=== PATIENT | male | born 1935 | race Caucasian/White ===

== ENCOUNTER 2016-07-18 11:07 | Inpatient (IN) | payer MEDICARE, MEDICAID ==
[~2016-07-18] VITALS: Ht 174 cm; Wt 59.0 kg
[~2016-07-18 11:07] MED LIST: ALB0.5V; ALBU17AE3 IH; ALBU8.5H2 IH; ASP81TEC PO; ATOR10TA66 PO; ATRV10T PO; BUDE10.2 IH; BUDE10.22 IH; CALC-78 PO; CIPR-225 PO; CIPR-226 PO; CIPR500T4 PO; CPR250T PO; FLUTICASONE; HYDR-3812 PO; IPRA3AMP11 INH; IPRA3AMP19 NEB; L.AC1CAP6 PO; LACT1CAP62 PO; METR500T PO; METR500T21 PO; MMT17NA NS; MOME0.132; MOME0.132 IH; MULT-963 PO; MULT1CAP27 PO; RT-ALBUINH IH; RT-COMBINH; RT-COMBINH IH; SALINE NASAL SPRAY; TIOT18CA2 IH; TRM50T PO
[2016-07-18] MEDS ORDERED: RT-ALBUTEROL/IPRATROPIUM 3 ML (DUONEB) VIAL INH ONE (11:15)
[2016-07-18] MEDS ORDERED: methylPREDNISolone 125 MG (Solu-MEDROL) VIAL IVP ONE (11:15)
[2016-07-18 11:32] LABS: BASOPHILS % (AUTO) 0 % (0-10); EOSINOPHILS % (AUTO) 0 % (0-10); LYMPHOCYTES # (AUTO) 0.6 X 10^3 (1.0-4.0); LYMPHOCYTES % (AUTO) 5 % (12-44); MEAN CORPUSCULAR HEMOGLOBIN 30 PG (25-34); MEAN CORPUSCULAR HGB CONC 32 G/DL (32-36); MEAN CORPUSCULAR VOLUME 96 FL (80-99); MEAN PLATELET VOLUME 9.6 FL (7.4-10.4); MONOCYTES # (AUTO) 0.6 X 10^3 (0.0-1.0); MONOCYTES % (AUTO) 4 % (0-12); NEUTROPHILS # (AUTO) 11.7 X 10^3 (1.8-7.8); NEUTROPHILS % (AUTO) 91 % (42-75); PLATELET COUNT 256 10^3/uL (130-400); RED BLOOD COUNT 4.43 10^6/uL (4.35-5.85); RED CELL DISTRIBUTION WIDTH 14.4 % (10.0-14.5); WHITE BLOOD COUNT 12.9 10^3/uL (4.3-11.0)
--- NOTE | 2016-07-18 11:36 | ED Cough/URI ---
General Chief Complaint: Respiratory Problems Stated Complaint: SOA Nursing Triage Note: PT TO ED 10 PER W/C FOR C/O INCREASED SOA, COUGH, CONGESTION. REPORTS PRESENTLY ON ABX ET STEROIDS FOR COMPLAINT BUT DENIES IMPROVEMENT Source: patient Exam Limitations: no limitations History of Present Illness Time seen by provider: 11:35 Initial Comments To ER with a one-week history of increased shortness of breath, productive cough and congestion. He is currently on Zithromax and prednisone but denies any improvement. Denies fevers or chills. History of COPD and wears oxygen at 2 L [id number]. Today he is requiring oxygen at 4 L to maintain a saturation of 90 percent. Timing/Duration: week, getting worse Severity/Quality: productive cough Allergies and Home Medications Allergies Coded Allergies: No Known Drug Allergies (Unverified , 01/19/09) Home Medications 50 MCG AEROSOL #0 2 SPRAY NA DAILY 2 SPRAYS IN EACH NOSTRIL ONCE DAILY PT MAY TAKE HIS OWN MEDS Prescribed by: RAMONE GAMBLE on 09/28/15 1224 Albuterol Sulfate 6.7 Gm Hfa.aer.ad #1 2 PUFF IH QID PRN PRN SHORTNESS OF BREATH Prescribed by: NAHOMI BLOCK on 10/03/15 0952 Albuterol Sulfate 8.5 Gm Hfa.aer.ad #1 1-2 PUFF IH Q4H Prescribed by: NAHOMI BLOCK on 10/03/15 0952 Albuterol Sulfate/Ipratropium 3 Ml Solution 3 ML NEB EVERY 4-6 HOURS PRN PRN SHORTNESS OF BREATH (Reported) Aspirin 81 Mg Tabec 81 MG PO DAILY (Reported) Atorvastatin Calcium 10 Mg Tablet 10 MG PO HS (Reported) Budesonide/Formoterol Fumarate 10.2 Gm Hfa.aer.ad 2 PUFF IH BID (Reported) TAKES @ 0500 AND 1700 Calcium Carbonate/Vitamin D3 1 Each Tablet 1 TAB PO DAILY (Reported) Ciprofloxacin HCl 250 Mg Tablet #0 250 MG PO DAILY Prescribed by: ZAKIA ROJAS on 10/03/15 1034 Hydrocodone/Acetaminophen 1 Each Tablet #30 1 EACH PO Q8H PRN PRN PAIN Prescribed by: NAHOMI BLOCK on 10/03/15 1005 L.acidoph & Paracasei,B.lactis 1 Each Capsule 1 CAP PO TID (Reported) Multivitamin 1 Each Tablet 1 TAB PO DAILY (Reported) Tiotropium [place] 1 Inh Aerp 1 INH IH DAILY (Reported) Constitutional: see HPINo chills, No fever EENTM: see HPI Respiratory: see HPI cough short of breath Cardiovascular: no symptoms reported Genitourinary: no symptoms reported Musculoskeletal: no symptoms reported Skin: no symptoms reported Psychiatric/Neurological: No Symptoms Reported Hematologic/Lymphatic: No Symptoms Reported Immunological/Allergic: no symptoms reported Past Zclbzzk-Medskl-Jhebwo Hx Patient Social History Alcohol Use: Denies Use Recreational Drug Use: No Smoking Status: Former Smoker Type Used: Cigarettes, Smokeless Tobacco Former Smoker/When Quit: November 17, 2004 Recent Foreign Travel: No Contact w/Someone Who Travel: No Recent Infectious Disease Expo: No Recent Hopitalizations: Yes ([place] 1997; coloscopy in [place]) Physical Abuse Screen: No Sexual Abuse: No Immunizations Up To Date Tetanus Booster (TDap): More than 5yrs Date of Pneumonia Vaccine: Jul 06, 2012 Date of Influenza Vaccine: May 06, 2015 Seasonal Allergies Seasonal Allergies: No Surgeries HX Surgeries: No Surgeries: Tonsillectomy Respiratory Hx Respiratory Disorders: Yes Respiratory Disorders: COPD, Emphysema Cardiovascular Hx Cardiac Disorders: Yes Cardiac Disorders: Heart Attack Neurological Hx Neurological Disorders: No Reproductive System Hx Reproductive Disorders: No Genitourinary Hx Genitourinary Disorders: Yes Genitourinary Disorders: Prostate Problems Gastrointestinal Hx Gastrointestinal Disorders: Yes (DIVERTICULOSIS, COLON STRICTURE) Gastrointestinal Disorders: Diverticulosis Musculoskeletal Hx Musculoskeletal Disorders: No Endocrine Hx Endocrine Disorders: No HEENT HX ENT Disorders: No Cancer Hx Cancer: Yes Cancer: Prostate Psychosocial Hx Psychiatric Problems: No Integumentary HX Skin/Integumentary Disorder: No Blood Transfusions Hx Blood Disorders: No Adverse Reaction to a Blood Tr: No Family Medical History Family Medial History: Patient reports no known family medical history. Physical Exam Vital Signs Vital Sign - Last 12Hours 07/18/16 07/18/16 11:10 11:34 Temp 99.7 Pulse 77 Resp 24 B/P 159/98 Pulse Ox 91 O2 Delivery Room Air O2 Flow Rate 4.00 Capillary Refill : Less Than 3 Seconds General Appearance: WD/WN mild distress Eyes: Bilateral Eye EOMI, Bilateral Eye Normal Inspection, Bilateral Eye PERRL HEENT: PERRL/EOMI normal ENT inspection Neck: non-tender full range of motion Respiratory: no respiratory distress no accessory muscle use decreased breath sounds wheezing Gastrointestinal: normal bowel sounds non tender soft Neurologic/Psychiatric: alert normal mood/affect oriented x 3 Skin: normal color warm/dry Progress/Results/Core Measures Results/Orders Lab Results Laboratory Tests Test 07/18/16 11:21 Range/Units Alanine Aminotransferase (ALT/SGPT) 31 0-55 U/L Albumin 4.4 3.2-4.5 G/DL Alkaline Phosphatase 59 40-136 U/L Anion Gap 10 5-14 MMOL/L Aspartate Amino Transf (AST/SGOT) 25 5-34 U/L BUN/Creatinine Ratio 16 Band Neutrophils 0 % Basophils # (Auto) 0.0 0.0-0.1 10^3/uL Basophils % (Manual) 0 % Basophils (%) (Auto) 0 0-10 % Blood Morphology Comment NORMAL Blood Urea Nitrogen 11 7-18 MG/DL Calcium Level 9.2 8.5-10.1 MG/DL Carbon Dioxide Level 34 H 21-32 MMOL/L Chloride Level 96 L 98-107 MMOL/L Creatinine 0.69 0.60-1.30 MG/DL Eosinophils # (Auto) 0.0 0.0-0.3 10^3/uL Eosinophils % (Manual) 0 % Eosinophils (%) (Auto) 0 0-10 % Estimat Glomerular Filtration Rate > 60 Glucose Level 104 70-105 MG/DL Hematocrit 42 40-54 % Hemoglobin 13.4 13.3-17.7 G/DL Lymphocytes # (Auto) 0.6 L 1.0-4.0 X 10^3 Lymphocytes % (Manual) 9 % Lymphocytes (%) (Auto) 5 L 12-44 % Mean Corpuscular Hemoglobin 30 25-34 PG Mean Corpuscular Hemoglobin Concent 32 32-36 G/DL Mean Corpuscular Volume 96 80-99 FL Mean Platelet Volume 9.6 7.4-10.4 FL Monocytes # (Auto) 0.6 0.0-1.0 X 10^3 Monocytes % (Manual) 1 % Monocytes (%) (Auto) 4 0-12 % Neutrophils # (Auto) 11.7 H 1.8-7.8 X 10^3 Neutrophils % (Manual) 90 % Neutrophils (%) (Auto) 91 H 42-75 % Platelet Count 256 130-400 10^3/uL Potassium Level 4.4 3.6-5.0 MMOL/L Red Blood Count 4.43 4.35-5.85 10^6/uL Red Cell Distribution Width 14.4 10.0-14.5 % Sodium Level 140 135-145 MMOL/L Total Bilirubin 0.6 0.1-1.0 MG/DL Total Protein 7.0 6.4-8.2 G/DL White Blood Count 12.9 H 4.3-11.0 10^3/uL My Orders Orders-MICHELET MARIN APRN Cbc With Automated Diff (07/18/16 11:14) Comprehensive Metabolic Panel (07/18/16 11:14) Chest 1 View, Ap/Pa Only (07/18/16 11:14) Saline Lock/Iv-Start (07/18/16 11:14) Methylprednisolone Sod Succ (Solu-Medrol (07/18/16 11:15) Albuterol/Ipra Inhalation Soln (Duoneb I (07/18/16 11:15) Svn Sm Volume Nebulizer Rt-Rfs (07/18/16 11:14) Manual Differential (07/18/16 11:21) Medications Given in ED Current Medications Medications Dose Ordered Sig/Bekah Route Start Time Stop Time Status Last Admin Dose Admin Albuterol/ Ipratropium 3 ml ONCE ONCE INH 07/18/16 11:15 07/18/16 11:16 DC 07/18/16 11:33 3 ML Methylprednisolone Sodium Succinate 125 mg ONCE ONCE IVP 07/18/16 11:15 07/18/16 11:16 DC 07/18/16 11:47 125 MG Vital Signs/I&O Vital Sign - Last 12Hours 07/18/16 07/18/16 11:10 11:34 Temp 99.7 Pulse 77 Resp 24 B/P 159/98 Pulse Ox 91 96 O2 Delivery Room Air Nasal Cannula O2 Flow Rate 4.00 Blood Pressure Mean: 118 Departure Communication Time/Spoke to Admitting Phy: 12:[address] Twan Garcia. We will admit the patient for IV steroids and Rocephin. He states he would like to be a full code but DO NOT INTUBATE. Impression Impression: Primary Impression: COPD exacerbation Disposition: ADMITTED INPATIENT Condition: Stable Decision to Admit Reason: Admit from ER (General) Decision to Admit/Date: Jul 18, 2016 Time/Decision to Admit Time: 12:05 Departure-Patient Inst. Referrals: NO,LOCAL PHYSICIAN (PCP/Family) Primary Care Physician MICHELET MARIN APRN Jul 18, 2016 11:36
--- NOTE | 2016-07-18 11:37 | Diagnostic Imaging Report ---
Exam: Postoperative radiograph of the chest. Indication: Respiratory infection. Comparison: 10/18/2014. Findings: Increased lucency in the perihilar regions of the lungs may relate to emphysema. There is mild interstitial thickening with no focal consolidation. No effusion or pneumothorax. The mediastinum and kayla appear unremarkable. The heart size is normal. Impression: COPD. No focal infiltrates. Dictated by: Dictated on workstation # [id number]
[2016-07-18 11:50] LABS: ALANINE AMINOTRANSFERASE 31 U/L (0-55); ALBUMIN 4.4 G/DL (3.2-4.5); ANION GAP 10 MMOL/L (5-14); ASPARTATE AMINO TRANSFERASE 25 U/L (5-34); BILIRUBIN,TOTAL 0.6 MG/DL (0.1-1.0); BLOOD UREA NITROGEN 11 MG/DL (7-18); BUN/CREATININE RATIO 16; CALCIUM 9.2 MG/DL (8.5-10.1); CARBON DIOXIDE 34 MMOL/L (21-32); CHLORIDE 96 MMOL/L (98-107); CREATININE SERUM 0.69 MG/DL (0.60-1.30); GFR ESTIMATED > 60; GLUCOSE 104 MG/DL (70-105); POTASSIUM 4.4 MMOL/L (3.6-5.0); SODIUM 140 MMOL/L (135-145)
[2016-07-18 11:57] LABS: BAND NEUTROPHILS 0 %; BASOPHILS % (MANUAL) 0 %; EOSINOPHILS % (MANUAL) 0 %; LYMPHOCYTES % (MANUAL) 9 %; NEUTROPHILS % (MANUAL) 90 %
[2016-07-18 12:40] VITALS: BP 147/72
[2016-07-18] MEDS ORDERED: HYDROCORTISONE 100 MG/2 ML (Solu-CORTEF) VIAL IV SCH (13:00)
[2016-07-18] MEDS ORDERED: methylPREDNISolone 40 MG/ML (Solu-MEDROL) VIAL IV SCH (13:00)
[2016-07-18] MEDS ORDERED: ONDANSETRON 4 MG/2 ML (SDV) Z0FRAN IV PRN (13:15)
[2016-07-18] MEDS: cefTRIAXone 1 GM/NS 50 ML IVPB IV SCH ×2 (13:21)
[2016-07-18] MEDS ORDERED: IPRA4AER INH (14:04)
[2016-07-18] MEDS ORDERED: KRIL1CAP22 PO (14:04)
[2016-07-18] MEDS ORDERED: SODI45SP6 NS (14:04)
[2016-07-18] MEDS ORDERED: RT-ALBUINH IH (14:04)
[2016-07-18] MEDS ORDERED: FLUT16SP22 NS (14:04)
[2016-07-18] MEDS ORDERED: CHOL10007 PO (14:04)
[2016-07-18] MEDS ORDERED: IPRA3AMP NEB (14:04)
[2016-07-18] MEDS ORDERED: CIPR250T3 PO (14:04)
[2016-07-18] MEDS ORDERED: [UNRECOGNIZED DRUG - CODE] OU (14:09)
[2016-07-18] MEDS ORDERED: PRD10T PO (14:09)
[2016-07-18 16:40] VITALS: BP 122/61
--- NOTE | 2016-07-18 17:06 | History & Physicial ---
History of Present Illness History of Present Illness Reason for visit/HPI 81-year-old male admitted for COPD exacerbation. [place] [facility] [place] COPD exacerbation he was given 10 mg of dexamethasone IM and started azithromycin. He was also placed on a prednisone taper. Patient patient came to the ER though for continued difficulty breathing. Patient reports his biggest concern is that his heart is beating closer to 100 and he's normally running around the 70s for pulse. While in the ER patient received 125 mg of Solu-Medrol IV and 1 g of Rocephin. Chest x-ray did not show any consolidation or pneumonia. Patient's baseline oxygen requirement is 2 L nasal cannula and he is requiring 4 L currently. Patient denies nausea vomiting or diarrhea. He does feel constipated though and thinks this is contributing to his difficulty breathing as it is pressing up and restricting his thoracic volume. Patient reports his last hospitalization was in September 2015 for similar presentation of COPD exacerbation. Dr. Herrera windows deployment technician help take care of him and he was discharged 8 days later per patient. Chart review showed that the September hospitalization was prolonged due to diverticulitis. This current illness started on [id number] was around the holidays and they had similar upper respiratory symptoms. Patient admitted for further observation and evaluation treatment. Date of Admission Jul 18, 2016 at 11:47 I consulted on this patient on 07/18/16 17:00 Attending Physician Twan Mtz MD Admitting Physician Twan Mtz MD Consult Allergies and Home Medications Allergies Coded Allergies: No Known Drug Allergies (Unverified , 01/19/09) Home Medications Albuterol Sulfate 8.5 Gm Hfa.aer.ad 1-2 PUFF IH Q4H PRN PRN SHORTNESS OF BREATH (Reported) Aspirin 81 Mg Tabec 81 MG PO DAILY (Reported) Atorvastatin Calcium 10 Mg Tablet 10 MG PO DAILY (Reported) Budesonide/Formoterol Fumarate 10.2 Gm Hfa.aer.ad 2 PUFF IH 0500,1700 (Reported ) Cholecalciferol (Vitamin D3) 1,000 Unit Capsule 1,000 UNIT PO DAILY (Reported) Ciprofloxacin HCl 250 Mg Tablet 250 MG PO DAILY (Reported) Fluticasone Propionate 16 Gm [place].susp 2 SPRAYS NS DAILY (Reported) Ipratropium/Albuterol Sulfate 3 Ml Ampul.neb 3 ML NEB QID PRN PRN SHORTNESS OF BREATH (Reported) Krill/Om-3/Dha/Epa/Phospho/Ast 1 Each Capsule 1 CAP PO DAILY (Reported) Multivitamin 1 Each Tablet 1 TAB PO DAILY (Reported) Prednisone 10 Mg Tab 9Days PO UD (Reported) TAKE 4 (10MG) TABS DAY 1 THEN, TAKE 3 (10MG) TABS DAILY X 2 DAYS THEN, TAKE 2 (10MG) TABS DAILY X 2 DAYS THEN, TAKE 1 (10MG) TABS DAILY X 2 DAYS THEN, TAKE 1/2 (10MG) TAB DAILY X 2 DAYS Sodium Chloride 45 Ml [place] 1-2 SPRAYS NS TID PRN PRN DRY NOSE (Reported) Tetrahydrozoline HCl 15 Ml Drops 1-2 DROPS OU TID PRN PRN DRY EYES (Reported) Tiotropium [place] 1 Inh Aerp 1 CAP IH 0500 (Reported) Past Xvfvfcj-Yadgbo-Zpgiwn Hx Patient Social History Alcohol Use: Denies Use Recreational Drug Use: No Smoking Status: Former Smoker Former smoker/When Quit: November 17, 2004 Type Used: Smokeless Tobacco Physical Abuse Screen: No Sexual Abuse: No Recent Foreign Travel: No Contact w/other who traveled: No Recent Hopitalizations: No Recent Infectious Disease Expo: No Immunizations Up To Date Tetanus Booster (TDap): More than 5yrs Date of Pneumonia Vaccine: Jul 06, 2012 Date of Influenza Vaccine: Jul 11, 2016 Seasonal Allergies Seasonal Allergies: No Surgeries HX Surgeries: No Surgeries: Tonsillectomy Respiratory Hx Respiratory Disorders: Yes Cardiovascular Hx Cardiovascular Disorders: Yes Cardiac Disorders: Heart Attack Neurological Hx Neurological Disorders: No Reproductive System Hx Reproductive Disorders: No Genitourinary Hx Genitourinary Disorders: Yes Genitourinary Disorders: Prostate Problems Gastrointestinal Hx Gastrointestinal Disorders: Yes (DIVERTICULOSIS, COLON STRICTURE) Gastrointestinal Disorders: Diverticulosis Musculoskeletal Hx Musculoskeletal Disorders: No Endocrine Hx Endocrine Disorders: No HEENT HX ENT Disorders: No Cancer Hx Cancer: Yes Cancer: Prostate Psychosocial Hx Psychiatric Problems: No Integumentary HX Skin/Integumentary Disorder: No Blood Transfusions Hx Blood Disorders: No Adverse Reaction to a Blood Tr: No Family Medical History Family Hx: Patient reports no known family medical history. Constitutional: No chills, No diaphoresis, No dizziness, No fever, No malaise, weakness EENTM: No blurred vision, No double vision, No ear pain, No hearing loss Respiratory: cough dyspnea on exertionNo hemoptysis, short of breath wheezing Cardiovascular: No chest pain Gastrointestinal: No abdominal pain, constipationNo diarrhea, No dysphagia, No heartburn Genitourinary: No decreased output Musculoskeletal: No back pain Skin: No change in hair/nails Psychiatric/Neurological: Denies Anxiety, Denies Depressed, Denies Emotional Problems Physical Exam Vital Signs Vital Sign - Last 12Hours 07/18/16 07/18/16 11:10 11:34 Temp 99.7 Pulse 77 Resp 24 B/P 159/98 Pulse Ox 91 O2 Delivery Room Air O2 Flow Rate 4.00 Capillary Refill : Less Than 3 Seconds General Appearance: Mild Distress (respiratory Mr.) Thin Neck: Non Tender Supple Respiratory: Chest Non Tender Decreased Breath Sounds Respiratory Distress Wheezing Cardiovascular: Regular Rate, Rhythm No Edema (pediatric TEDDY in order to 4) Gastrointestinal: Normal Bowel Sounds Non Tender Rectal: Deferred Back: Normal Inspection No CVA Tenderness Extremity: Normal Capillary Refill Normal Range of Motion Non Tender Neurologic/Psychiatric: Alert Oriented x3 Normal Mood/Affect Skin: Warm/Dry Assessment/Plan Assessment and Plan 81 yo M admitted 07/18/16 COPD exacerbation- failed outpt intervention- continue solumedrol IV, MAT protocol, rocephin 1g IV , CXR eng Constipation - pt does not want anything right now. Tachycardia- received duonebs- monitor Leukocytosis- on steroids- on rocephin - rechecking in AM HLD- hold statin colonic stricture- stable, hospitalized 09/2016 for diverticulitis- not a surgical candidate. DVT ppx- SCDs Code Status- DNI Dispo: continue to monitor status- on solumedrol , rocephin, MAT protocol Clinical Quality Measures DVT/VTE Risk/Contraindication: Risk Factor Score Per Nursin RFS Level Per Nursing on Admit: 4+=Very High TWAN MTZ MD Jul 18, 2016 17:06
[2016-07-18] MEDS ORDERED: RT-ALBUTEROL/IPRATROPIUM 3 ML (DUONEB) VIAL IH PRN (17:15)
[2016-07-18] MEDS ORDERED: TETRAHYDROZOLINE (VISINE) 0.05% 15 ML BTL OU PRN (17:15)
[2016-07-18] MEDS ORDERED: SALINE NASAL SPRAY (OCEAN) 45 ML BTL NS PRN (17:15)
[2016-07-18] MEDS ORDERED: RT-ALBUTEROL SULF 2.5 MG/3 ML PRE-MIX VIAL INH PRN (17:30)
[2016-07-18 20:13] VITALS: BP 134/62
[2016-07-18] MEDS: methylPREDNISolone 40 MG/ML (Solu-MEDROL) VIAL IV SCH (20:26)
[2016-07-18] MEDS: RT-ALBUTEROL/IPRATROPIUM 3 ML (DUONEB) VIAL INH SCH (21:16)
[2016-07-19] VITALS: BP 143/62
[2016-07-19 04:07] VITALS: BP 133/64
[2016-07-19] MEDS: methylPREDNISolone 40 MG/ML (Solu-MEDROL) VIAL IV SCH ×3 (04:08→20:48)
[2016-07-19] MEDS: RT-ALBUTEROL/IPRATROPIUM 3 ML (DUONEB) VIAL INH SCH ×4 (04:12→19:43)
[2016-07-19] MEDS ORDERED: RT-ADVAIR HFA 115/21 MCG PER PUFF IH SCH (05:00)
[2016-07-19] MEDS ORDERED: TIOTROPIUM BROMIDE (SPIRIVA) 5'S INHALER IH SCH (05:00)
[2016-07-19 08:00] VITALS: BP 119/65
--- NOTE | 2016-07-19 08:26 | Progress Note (SOAP) ---
Subjective Subjective/Events-last exam CC: 81 yo M with COPD exacerbation, tachycardia. Doing much better- Pt this AM on 3L oxygen- baseline of 2L- Pt was starting to eat breakfast. He reports 6cm in length stool last night and 10cm this AM. Denies nausea,fever, pain. Is still coughing up phlegm. Tachycardia improved/resolved. Review of Systems General: No Chills, No Night Sweats HEENT: No Head Aches, No Visual Changes Pulmonary: Dyspnea (improving) Cough Cardiovascular: No: Chest Pain, Palpitations Gastrointestinal: No: Abdominal Pain, Nausea, Vomiting Genitourinary: No Dysuria, No Frequency Musculoskeletal: No: neck pain Neurological: No: Numbness, Weakness Objective Exam Vital Signs Date Time Temp Pulse Resp B/P Pulse Ox O2 Delivery O2 Flow Rate FiO2 07/19/16 04:13 97 Nasal Cannula 4.00 07/19/16 04:07 96.3 71 18 133/64 97 Nasal Cannula 4.00 07/19/16 00:00 97.8 91 20 143/62 95 Nasal Cannula 4.00 07/18/16 21:17 97 Nasal Cannula 4.00 07/18/16 20:30 Nasal Cannula 4.00 07/18/16 20:13 98.4 96 20 134/62 97 Nasal Cannula 4.00 07/18/16 17:18 96 07/18/16 16:40 99.2 95 20 122/61 96 Nasal Cannula 4.00 07/18/16 12:40 77 20 96 Nasal Cannula 4 07/18/16 12:40 Nasal Cannula 3.00 07/18/16 12:40 98.7 94 20 147/72 95 Nasal Cannula 4.00 07/18/16 11:34 96 Nasal Cannula 4.00 07/18/16 11:10 99.7 77 24 159/98 91 Room Air I & O 07/19/16 07:00 Intake Total 1287 ml Output Total 1475 ml Balance -188 ml Capillary Refill : Less Than 3 Seconds General Appearance: No Apparent Distress HEENT: Other (EOMI) Neck: Normal Inspection Non Tender Respiratory: Chest Non Tender Decreased Breath Sounds (bases) Rhonci (coarse) Wheezing (minimal) Cardiovascular: Regular Rate, Rhythm No Edema Gastrointestinal: normal bowel sounds non tender soft Extremity: Normal Capillary Refill Neurologic/Psychiatric: Alert Oriented x3 Skin: Warm/Dry Results Lab Laboratory Tests 07/18/16 11:21: Alanine Aminotransferase (ALT/SGPT) 31, Albumin 4.4, Alkaline Phosphatase 59, Anion Gap 10, Aspartate Amino Transf (AST/SGOT) 25, BUN/Creatinine Ratio 16, Band Neutrophils 0, Basophils # (Auto) 0.0, Basophils % (Manual) 0, Basophils (% ) (Auto) 0, Blood Morphology Comment NORMAL, Blood Urea Nitrogen 11, Calcium Level 9.2, Carbon Dioxide Level 34H, Chloride Level 96L, Creatinine 0.69, Eosinophils # (Auto) 0.0, Eosinophils % (Manual) 0, Eosinophils (%) (Auto) 0, Estimat Glomerular Filtration Rate > 60, Glucose Level 104, Hematocrit 42, Hemoglobin 13.4, Lymphocytes # (Auto) 0.6L, Lymphocytes % (Manual) 9, Lymphocytes (%) (Auto) 5L, Mean Corpuscular Hemoglobin 30, Mean Corpuscular Hemoglobin Concent 32, Mean Corpuscular Volume 96, Mean Platelet Volume 9.6, Monocytes # (Auto) 0.6, Monocytes % (Manual) 1, Monocytes (%) (Auto) 4, Neutrophils # (Auto) 11.7H, Neutrophils % (Manual) 90, Neutrophils (%) (Auto) 91H, Platelet Count 256, Potassium Level 4.4, Red Blood Count 4.43, Red Cell Distribution Width 14.4, Sodium Level 140, Total Bilirubin 0.6, Total Protein 7.0, White Blood Count 12.9H Assessment/Plan Assessment/Plan Assess & Plan/Chief Complaint 81 yo M admitted 07/18/16 COPD exacerbation- failed outpt intervention- continue solumedrol IV, MAT protocol, rocephin 1g IV , CXR neg Constipation - improved BM 07/19/16 Tachycardia- received duonebs- monitor- improved regular rate Leukocytosis- on steroids- on rocephin - rechecking in AM HLD- hold statin colonic stricture- stable, hospitalized 09/2016 for diverticulitis- not a surgical candidate. -monitor gynecomastia- due for repeat mammogram in November 2016- previous workup negative. DVT ppx- SCDs Code Status- DNI Dispo: continue to monitor status- titrating solumedrol, MAT protocol Diagnosis/Problems: Clinical Quality Measures DVT/VTE Risk/Contraindication: Risk Factor Score Per Nursin RFS Level Per Nursing on Admit: 4+=Very High MENDOZA MTZ MD Jul 19, 2016 08:26
[2016-07-19] MEDS: UMECLIDINIUM BROMIDE (INCRUSE ELLIPTA) 7'S IH SCH (08:52)
[2016-07-19] MEDS: ASPIRIN E.C. 81 MG (ECOTRIN) TAB PO SCH (08:52)
[2016-07-19] MEDS: FLUTICASONE NASAL SPRAY (FLONASE) 16 GM BTL NS SCH (08:53)
[2016-07-19] MEDS: RT-ADVAIR HFA 115/21 MCG PER PUFF IH SCH ×2 (08:54→19:43)
[2016-07-19] MEDS: ENOXAPARIN 40 MG/0.4 ML (LOVENOX) SYR SQ SCH (08:55)
[2016-07-19 12:00] VITALS: BP 121/74
[2016-07-19] MEDS: cefTRIAXone 1 GM/NS 50 ML IVPB IV SCH ×2 (13:28)
[2016-07-19 16:00] VITALS: BP 126/65
[2016-07-19 19:47] VITALS: BP 133/86
[2016-07-20] VITALS: BP 126/57
[2016-07-20] MEDS: RT-ALBUTEROL/IPRATROPIUM 3 ML (DUONEB) VIAL INH SCH ×4 (02:16→19:19)
[2016-07-20 04:34] LABS: BASOPHILS % (AUTO) 0 % (0-10); EOSINOPHILS % (AUTO) 0 % (0-10); LYMPHOCYTES # (AUTO) 0.6 X 10^3 (1.0-4.0); LYMPHOCYTES % (AUTO) 3 % (12-44); MEAN CORPUSCULAR HEMOGLOBIN 30 PG (25-34); MEAN CORPUSCULAR HGB CONC 31 G/DL (32-36); MEAN CORPUSCULAR VOLUME 98 FL (80-99); MONOCYTES # (AUTO) 0.9 X 10^3 (0.0-1.0); MONOCYTES % (AUTO) 5 % (0-12); NEUTROPHILS # (AUTO) 16.2 X 10^3 (1.8-7.8); NEUTROPHILS % (AUTO) 92 % (42-75); PLATELET COUNT 278 10^3/uL (130-400); RED BLOOD COUNT 4.24 10^6/uL (4.35-5.85); RED CELL DISTRIBUTION WIDTH 14.5 % (10.0-14.5); WHITE BLOOD COUNT 17.7 10^3/uL (4.3-11.0)
[2016-07-20] MEDS: methylPREDNISolone 40 MG/ML (Solu-MEDROL) VIAL IV SCH (04:35)
[2016-07-20 04:52] LABS: ALBUMIN 3.9 G/DL (3.2-4.5); ANION GAP 10 MMOL/L (5-14); BLOOD UREA NITROGEN 24 MG/DL (7-18); BUN/CREATININE RATIO 31; CARBON DIOXIDE 37 MMOL/L (21-32); CHLORIDE 96 MMOL/L (98-107); CREATININE SERUM 0.78 MG/DL (0.60-1.30); GFR ESTIMATED > 60; GLUCOSE 166 MG/DL (70-105); MAGNESIUM 2.3 MG/DL (1.8-2.4); PHOSPHORUS 3.9 MG/DL (2.3-4.7); POTASSIUM 4.1 MMOL/L (3.6-5.0); SODIUM 143 MMOL/L (135-145)
[2016-07-20] MEDS: RT-ADVAIR HFA 115/21 MCG PER PUFF IH SCH ×2 (07:00→19:19)
[2016-07-20] MEDS: UMECLIDINIUM BROMIDE (INCRUSE ELLIPTA) 7'S IH SCH (07:00)
[2016-07-20 08:00] VITALS: BP 124/62
--- NOTE | 2016-07-20 08:05 | Progress Note (SOAP) ---
Subjective Subjective/Events-last exam 81 yo M with COPD exacerbation Reports feeling better daily- Denies any worsening of respiratory status- Gets up to go to the bathroom. Denies fever. Using his IS to promote coughing and keeps his lungs open. Tachycardia is still improved and returns with breathing treatments. Review of Systems General: No Chills, No Night Sweats HEENT: No Head Aches Pulmonary: Dyspnea Cough Cardiovascular: No: Chest Pain, Palpitations Gastrointestinal: No: Abdominal Pain, Nausea, Vomiting Genitourinary: No Dysuria, No Frequency Musculoskeletal: No: neck pain, shoulder pain Neurological: No: Weakness Objective Exam Vital Signs Date Time Temp Pulse Resp B/P Pulse Ox O2 Delivery O2 Flow Rate FiO2 07/20/16 07:01 96 Nasal Cannula 3.00 07/20/16 02:16 96 Nasal Cannula 3.00 07/20/16 00:00 97.0 70 18 126/57 98 Nasal Cannula 3.00 07/19/16 20:30 96 Nasal Cannula 3.00 07/19/16 19:51 95 07/19/16 19:47 98.8 108 18 133/86 92 Nasal Cannula 3.00 07/19/16 19:43 95 Nasal Cannula 3.00 07/19/16 16:00 97.7 83 18 126/65 98 Nasal Cannula 3.00 07/19/16 14:15 98 Nasal Cannula 3.00 07/19/16 12:00 97.8 78 18 121/74 98 Nasal Cannula 4.00 07/19/16 09:00 Nasal Cannula 3.00 07/19/16 08:55 94 Nasal Cannula 3.00 I & O 07/20/16 07:00 Intake Total 2090 ml Output Total 575 ml Balance 1515 ml Capillary Refill : Less Than 3 Seconds General Appearance: No Apparent Distress WD/WN HEENT: PERRL/EOMI Neck: Full Range of Motion Supple Respiratory: Chest Non Tender Other (tight breath sounds throughout, wheeze occassional- no rhonchi or stridor) Cardiovascular: Regular Rate, Rhythm No Edema Gastrointestinal: normal bowel sounds non tender soft Extremity: Normal Inspection Non Tender Neurologic/Psychiatric: Alert Oriented x3 No Motor/Sensory Deficits Normal Mood/Affect Skin: Normal Color Warm/Dry Results Lab Laboratory Tests 07/20/16 04:08: Albumin 3.9, Anion Gap 10, BUN/Creatinine Ratio 31, Basophils # (Auto) 0.0, Basophils (%) (Auto) 0, Blood Urea Nitrogen 24H, Calcium Level 9.0, Carbon Dioxide Level 37H, Chloride Level 96L, Creatinine 0.78, Eosinophils # (Auto) 0.0 , Eosinophils (%) (Auto) 0, Estimat Glomerular Filtration Rate > 60, Glucose Level 166H, Hematocrit 41, Hemoglobin 12.7L, Lymphocytes # (Auto) 0.6L, Lymphocytes (%) (Auto) 3L, Magnesium Level 2.3, Mean Corpuscular Hemoglobin 30, Mean Corpuscular Hemoglobin Concent 31L, Mean Corpuscular Volume 98, Mean Platelet Volume 10.0, Monocytes # (Auto) 0.9, Monocytes (%) (Auto) 5, Neutrophils # (Auto) 16.2H, Neutrophils (%) (Auto) 92H, Phosphorus Level 3.9, Platelet Count 278, Potassium Level 4.1, Red Blood Count 4.24L, Red Cell Distribution Width 14.5, Sodium Level 143, White Blood Count 17.7H Assessment/Plan Assessment/Plan Assess & Plan/Chief Complaint 81 yo M admitted 07/18/16 COPD exacerbation- failed outpt intervention- MAT protocol, rocephin 1g IV , CXR neg, methylprednisolone iv to prednisone PO - will give 1 time dose of dexamethasone. Constipation - improved BM 07/19/16 Tachycardia- received duonebs- monitor- improved regular rate Leukocytosis- on steroids- on rocephin - increased to 17K rechecking in AM HLD- hold statin colonic stricture- stable, hospitalized 09/2016 for diverticulitis- not a surgical candidate. -monitor gynecomastia- due for repeat mammogram in November 2016- previous workup negative. DVT ppx- SCDs Code Status- DNI Dispo: continue to monitor status- titrating solumedrol, MAT protocol- plan to d/c to home in the next 2 days- near baseline oxygen requirement. Diagnosis/Problems: Clinical Quality Measures DVT/VTE Risk/Contraindication: Risk Factor Score Per Nursin RFS Level Per Nursing on Admit: 4+=Very High MENDOZA MTZ MD Jul 20, 2016 08:05
[2016-07-20] MEDS: ASPIRIN E.C. 81 MG (ECOTRIN) TAB PO SCH (08:27)
[2016-07-20] MEDS: predniSONE 20 MG TAB PO SCH ×2 (08:27→20:42)
[2016-07-20] MEDS: FLUTICASONE NASAL SPRAY (FLONASE) 16 GM BTL NS SCH (08:27)
[2016-07-20] MEDS: ENOXAPARIN 40 MG/0.4 ML (LOVENOX) SYR SQ SCH (08:28)
--- NOTE | 2016-07-20 09:15 | Diagnostic Imaging Report ---
INDICATION: Hypoxia and COPD exacerbation. Comparison is made with prior examination from 07/18/16. FINDINGS: The heart size is normal. Mediastinum is unremarkable. There is some COPD. There is no pleural effusion or pneumothorax. Mediastinum is unremarkable. IMPRESSION: COPD, otherwise unremarkable. Dictated by: Dictated on workstation # [id number]
[2016-07-20] MEDS: cefTRIAXone 1 GM/NS 50 ML IVPB IV SCH ×2 (13:00)
[2016-07-20] MEDS ORDERED: DEXAMETHASONE 4 MG/ML SDV (DECADRON) IV NR (13:15)
[2016-07-20 16:53] VITALS: BP 140/63
[2016-07-20 20:00] VITALS: BP 165/76
[2016-07-21] VITALS: BP 123/61
[2016-07-21] MEDS: RT-ALBUTEROL/IPRATROPIUM 3 ML (DUONEB) VIAL INH SCH ×8 (01:00→21:02)
[2016-07-21 04:00] VITALS: BP 126/58
[2016-07-21 04:44] LABS: BASOPHILS % (AUTO) 0 % (0-10); EOSINOPHILS % (AUTO) 0 % (0-10); LYMPHOCYTES # (AUTO) 0.5 X 10^3 (1.0-4.0); LYMPHOCYTES % (AUTO) 3 % (12-44); MEAN CORPUSCULAR HEMOGLOBIN 30 PG (25-34); MEAN CORPUSCULAR HGB CONC 31 G/DL (32-36); MEAN CORPUSCULAR VOLUME 97 FL (80-99); MEAN PLATELET VOLUME 9.9 FL (7.4-10.4); MONOCYTES # (AUTO) 1.1 X 10^3 (0.0-1.0); MONOCYTES % (AUTO) 6 % (0-12); NEUTROPHILS # (AUTO) 16.1 X 10^3 (1.8-7.8); NEUTROPHILS % (AUTO) 91 % (42-75); PLATELET COUNT 243 10^3/uL (130-400); RED BLOOD COUNT 4.12 10^6/uL (4.35-5.85); RED CELL DISTRIBUTION WIDTH 14.5 % (10.0-14.5); WHITE BLOOD COUNT 17.8 10^3/uL (4.3-11.0)
[2016-07-21] MEDS: UMECLIDINIUM BROMIDE (INCRUSE ELLIPTA) 7'S IH SCH (07:14)
[2016-07-21] MEDS: RT-ADVAIR HFA 115/21 MCG PER PUFF IH SCH ×2 (07:14→21:02)
[2016-07-21 07:52] VITALS: BP 141/64
[2016-07-21] MEDS: ASPIRIN E.C. 81 MG (ECOTRIN) TAB PO SCH (08:06)
[2016-07-21] MEDS: FLUTICASONE NASAL SPRAY (FLONASE) 16 GM BTL NS SCH (08:06)
[2016-07-21] MEDS: ENOXAPARIN 40 MG/0.4 ML (LOVENOX) SYR SQ SCH (08:06)
[2016-07-21] MEDS: predniSONE 20 MG TAB PO SCH ×2 (08:06→20:14)
--- NOTE | 2016-07-21 08:06 | Physician Query-General Query ---
Physician Query-General Query to Physician: For clarification: Is this patient's colonic stricture due to diverticulosis or other etiology? Please clarify. Thank you. PHYSICIAN RESPONSE: Based on the clinical findings in the record, please respond to the query above on this document as an addendum. Possible, probable, or questionable diagnosis can be coded for INPATIENTS ONLY. Physician Response: Physician Response diverticulosis If you have questions please contact: Crown Wheel Assembler:Shreya Agrawal [facility] Ext:[phone] Thank you for your time and cooperation. Clinical Conduit Helper/Crown Wheel Assembler This is a permanent part of the medical record SHREYA AGRAWAL Jul 21, 2016 08:06 MENDOZA MTZ MD Jul 21, 2016 08:46
[2016-07-21] MEDS ORDERED: CATHETER FLUSH 10 ML SYR IV PRN (08:15)
--- NOTE | 2016-07-21 09:19 | Progress Note (SOAP) ---
Subjective Subjective/Events-last exam 81 yo M with copd exacerbation- nursing report from yesterday reports anxiety from the pt and anger because he wants to keep the oxygen at 3L so his sats are 98%. Pt also wants to use his albuterol inhaler QID, prn- RT is giving him nebulizer. Pt reports he feels better when he uses the albuterol, helps open him up. He is a little unsure of going home today. Review of Systems General: No Chills, No Night Sweats HEENT: No Head Aches Pulmonary: Dyspnea Cough Cardiovascular: No: Chest Pain, Palpitations Gastrointestinal: No: Abdominal Pain, Nausea, Vomiting Genitourinary: No Dysuria, No Frequency Musculoskeletal: No: neck pain, shoulder pain Neurological: : WeaknessNo: Numbness Objective Exam Vital Signs Date Time Temp Pulse Resp B/P Pulse Ox O2 Delivery O2 Flow Rate FiO2 07/21/16 09:05 92 Nasal Cannula 2.50 07/21/16 07:52 97.3 89 16 141/64 97 Nasal Cannula 2.50 07/21/16 07:22 Nasal Cannula 2.50 07/21/16 07:14 98 Nasal Cannula 2.50 07/21/16 04:00 96.7 71 18 126/58 99 Nasal Cannula 2.50 07/21/16 00:00 98.3 84 18 123/61 97 Nasal Cannula 2.50 07/20/16 20:10 Nasal Cannula 2.50 07/20/16 20:00 99.1 97 18 165/76 96 Nasal Cannula 2.50 07/20/16 19:25 Nasal Cannula 2.50 07/20/16 19:20 94 Nasal Cannula 2.50 07/20/16 16:53 96.9 103 18 140/63 97 Nasal Cannula 2.50 07/20/16 15:16 95 Nasal Cannula 2.50 07/20/16 09:21 96 Nasal Cannula 3.00 I & O 07/21/16 07:00 Intake Total 3150 ml Output Total 1750 ml Balance 1400 ml Capillary Refill : Less Than 3 Seconds General Appearance: Anxious Mild Distress HEENT: PERRL/EOMI Neck: Supple Respiratory: Chest Non Tender Decreased Breath Sounds (bases) Wheezing Other ( tight sounding- ) Cardiovascular: Regular Rate, Rhythm No Edema Gastrointestinal: normal bowel sounds non tender soft Extremity: Normal Inspection Non Tender Neurologic/Psychiatric: Alert Oriented x3 Normal Mood/Affect (a little anxious ) Skin: Warm/Dry Results Lab Laboratory Tests 07/21/16 04:30: Basophils # (Auto) 0.0, Basophils (%) (Auto) 0, Eosinophils # (Auto) 0.0, Eosinophils (%) (Auto) 0, Hematocrit 40, Hemoglobin 12.3L, Lymphocytes # (Auto) 0.5L, Lymphocytes (%) (Auto) 3L, Mean Corpuscular Hemoglobin 30, Mean Corpuscular Hemoglobin Concent 31L, Mean Corpuscular Volume 97, Mean Platelet Volume 9.9, Monocytes # (Auto) 1.1H, Monocytes (%) (Auto) 6, Neutrophils # (Auto ) 16.1H, Neutrophils (%) (Auto) 91H, Platelet Count 243, Red Blood Count 4.12L, Red Cell Distribution Width 14.5, White Blood Count 17.8H Assessment/Plan Assessment/Plan Assess & Plan/Chief Complaint 81 yo M admitted 07/18/16 COPD exacerbation- failed outpt intervention- MAT protocol, rocephin 1g IV switching to po cefdinir , CXR neg, methylprednisolone iv to prednisone PO - 1 time dose of dexamethasone 10mg 07/20/16 Constipation - improved BM 07/19/16 Tachycardia- monitor- improved regular rate Leukocytosis- on steroids- on rocephin - increased to 17K - will recheck in AM HLD- hold statin colonic stricture due to diverticulosis- stable, hospitalized 09/2016 for diverticulitis- not a surgical candidate. -monitor gynecomastia- due for repeat mammogram in November 2016- previous workup negative. DVT ppx- SCDs, lovenox Code Status- DNI Dispo: continue to monitor status- pt's leukocytes have not decreased- will check WBC in AM, also pt sounds tighter today with wheezing- he is working a little harder to breath- anxiety is contributing to this. plan to d/c to home in tomorrow- near baseline oxygen requirement. -will send home on prednisone taper, cefdinir x4 more days. -CM, PT, OT to eval pt today for Home Health Diagnosis/Problems: Clinical Quality Measures DVT/VTE Risk/Contraindication: Risk Factor Score Per Nursin RFS Level Per Nursing on Admit: 4+=Very High MENDOZA MTZ MD Jul 21, 2016 09:19
[2016-07-21] MEDS: CEFDINIR 300 MG (OMNICEF) CAP PO SCH ×2 (10:01→20:14)
--- NOTE | 2016-07-21 10:49 | Physical Therapy Evaluation ---
PT Evaluation-General Medical Diagnosis Admission Date Jul 18, 2016 at 11:47 Medical Diagnosis: COPD exacerbation Onset Date: Jul 21, 2016 Therapy Diagnosis Therapy Diagnosis: weakness; abn gait Height/Weight Height (Feet): 5 Height (Inches): 8.50 Weight (Pounds): 130 Weight (Ounces): 1.0 Precautions Precautions/Isolations: Standard Precautions Weight Bear Status Weight Bearing Restriction: Weight Bearing/Tolerated Referral Physician: Jose Reason for Referral: Evaluation/Treatment Medical History Pertinent Medical History: COPD, [place], Smoking Current History [facility] COPD and unable to manage symptoms at home. reports he plans to discharge him tomorrow. Reviewed History: Yes Social History Home: Apartment ([place] of [address]) Current Living Status: Alone (has SKIL 15 hrs/week) Entry Into Home: Elevator Prior/Core FIM Prior Level of Function Functional [place] Measure 0=Not Assessed/NA 4=Minimal Assistance 1=Total Assistance 5=Supervision or Setup 2=Maximal Assistance 6=Modified [place] 3=Moderate Assistance 7=Complete [place] Bed Mobility: 7 Transfers (B,C,W/C) (FIM): 7 Gait: 7 Pt reports he has a walker at home but does not use it; typically attends mass 2 x / day. Drives. Has assist with grocery shopping and housework PT Evaluation-Current Subjective Pt agreeable to PT. Reports he has been up ad ning in his room. Pain Numeric Pain Scale: 0-No Pain Location: No Pain Reported Objective Patient Orientation: Person, Place, Time, Situation Problem Solving: Good Attachments: Oxygen (on during and post treatment) ROM/Strength ROM Lower Extremities WFL Strenght Lower Extremities grossly 4/5 throughout Integumentary/Posture Integumentary intact Bowel Incontinence: No Bladder Incontinence: No Posture rounded shoulders and slight forward flexed at hips. Neuromuscular (Tone, Coordination, Reflexes) Intact and functional Sensory Vision: Functional Hearing: Functional Hand Dominance: Right Sensation Right Lower Extremit: Intact Sensation Left Lower Extremity: Intact Transfers Functional [place] Measure 0=Not Assessed/NA 4=Minimal Assistance 1=Total Assistance 5=Supervision or Setup 2=Maximal Assistance 6=Modified [place] 3=Moderate Assistance 7=Complete [place] Transfers (B, C, W/C) (FIM): 5 Gait Mode of Locomotion: Walk Anticipated Mode of Locomotion: Walk Gait (FIM): 2 Distance (FIM): 5=686-30 ft Distance: 85 ft Gait Level of Assist: 5 Gait Assistive Device: FWW Comments/Gait Description Pt's gait is steady and without LOB noted; ambulated 85 ft with FWW with SBA. Pt then ambulated to the restroom without AD and sat on the toilet. Pt to call for assist when finished, although he reported he had been toileting without assist. Balance Sitting Static: Normal Sitting Dynamic: Normal Standing Static: Good Standing Dynamic: Good Assessment/Needs Pt admitted with COPD exac. His oxygen sats did drop to 88% with ambulation but returned to 90% in less than 1 minutes. He has a slight decline in functional mobility and activity tolerance and would benefit from skilled PT services to work on mobility and activity tolerance. Pt expresses that he would Like [facility] PT and OT at home and recommend that this would be beneficial. Rehab Potential: Good PT Alf Goals Cooker Loader Goals PT Alf Goals Time Frame: Jul 25, 2016 Transfers (B,C,W/C) (FIM): 6 Gait (FIM): 6 Gait distance (FIM): 3=150 ft Gait Assistive Device: FWW PT Plan Problem List Problem List: Activity Tolerance, Functional Strength, Safety, Gait, Transfer Treatment/Plan Treatment Plan: Continue Plan of Care Treatment Plan: Bed Mobility, Education, Functional Activity Felipe, Functional Strength, Gait, Safety, Therapeutic Exercise, Transfers Treatment Duration: Jul 25, 2016 # of days/week 5 Visits Per Week: 5 Pt/Family Agrees w/Plan: Yes Safety Risks/Education Patient Education: Safety Issues Teaching Recipient: Patient Teaching Methods: Discussion Response to Teaching: Verbalize Understanding Discharge Recommendations Therapy D/C Recommendations: Physical Therapy Home Care Time/GCodes Time In: 945 Time Out: 1000 Total Billed Treatment Time: 15 Total Billed Treatment visit EVM 15 BRANDO EATON PT Jul 21, 2016 10:48
[2016-07-21 12:20] VITALS: BP 137/74
[2016-07-21] MEDS: CATHETER FLUSH 10 ML SYR IV SCH ×2 (13:45→20:14)
[2016-07-21 16:17] VITALS: BP 146/74
--- NOTE | 2016-07-21 16:46 | Occupational Therapy Eval ---
OT Evaluation-General/PLF Medical Diagnosis Admission Date Jul 18, 2016 at 11:47 Medical Diagnosis: COPD exacerbation Onset Date: Jul 21, 2016 Therapy Diagnosis Therapy Diagnosis: decreased activity tolerance Height/Weight Height (Feet): 5 Height (Inches): 8.50 Weight (Pounds): 130 Weight (Ounces): 1.0 Precautions Precautions/Isolations: Standard Precautions Safety Interventions: None Weight Bear Status Weight Bearing Restriction: Weight Bearing/Tolerated Referral Physician: Jose Referral Reason: Evaluation/Treatment Referral Comments For home health Medical History Pertinent Medical History: COPD, [place], Smoking Additional Medical History Hx diverticulosis, prostate problems, colon stricture, emphysema Current History Admitted with SOA, cough, congestion. COPD exacerbation Reviewed History: Yes Social History Home: Apartment ([place] of C) Current Living Status: Alone (has SKIL 15 hrs/week) Entry Into Home: Elevator ADL-Prior Level of Function ADL PLOF Comments Pt reported that he has been able to manage his basic self care needs but has 15 hours a week SKIL help to do laundry, cleaning, etc. DME/Equipment: Bath Chair OT Current Status Subjective Pt seen in room, up in bed, agreeable to OT. Current Hand Dominance: Right ADL-Treatment ADL-Current Pt reported that he has been taking himself to the bathroom, got himself dressed , feeding himself, etc.. He did acknowledge some difficulty doing activities that require bending over such as putting on socks or picking something up from floor. He wears oxygen 24/7 at home at 2 to 2.5 L/min and has it running at a higher level now. He was agreeable to home health OT to help him identify ways to conserve his energy, whether its with assistive devices or modified techniques or other methods. Functional [place] Measure 0=Not Assessed/NA 4=Minimal Assistance 1=Total Assistance 5=Supervision or Setup 2=Maximal Assistance 6=Modified [place] 3=Moderate Assistance 7=Complete IndependenceIRFPAI Quality Coding Scale 6 Independent with activity with or without an assistive device 5 Patient requires set up or clean up by helper. Patient completes activity by themselves 4 Supervision or touching assist (CGA). [place] provide cues , steadying assist 3 The helper provides less than half the effort to complete the activity 2 The helper provides more than half the effort to complete the activity 1 Dependent. The helper does all the effort to complete an activity 7 Patient refused to complete or attempt activity 9 The patient did not perform the activity before the current illness or injury 88 Not attempted due to Medical conditions or safety concerns Education OT Patient Education: Energy conservation Teaching Recipient: Patient Teaching Methods: Discussion Response to Teaching: Verbalize Understanding OT Short Term Goals Short Term Goals 1=Demonstrate adherence to instructed precautions during ADL tasks. 2=Patient will verbalize/demonstrate understanding of assistive devices/ modifications for ADL. 3=Patient will improve strength/tolerance for activity to enable patient to perform ADL's. OT Vtc Technician Goals Vtc Technician Goals Time Frame: Dc Refer patient for home health OT for energy conservation education 1=Demonstrate adherence to instructed precautions during ADL tasks. 2=Patient will verbalize/demonstrate understanding of assistive devices/ modifications for ADL. 3=Patient will improve strength/tolerance for activity to enable patient to perform ADL's. OT Education/Plan Problem List/Assessment Assessment: Decreased Activ Tolerance Pt would benefit from skilled OT in his home to help him identify methods for conserving his energy while managing self care tasks. Home health recommendation shared with social work. Pending DC to home tomorrow. Discharge Recommendations Plan/Recommendations: Discontinue OT Therapy D/C Recommendations: Occupational Therapy Home Care Target Placement home Treatment Plan/Plan of Care Treatment,Training & Education: Yes Patient would benefit from OT for education, treatment and training to promote independence in ADL's, mobility, safety and/or upper extremity function for ADL' s. Plan of Care: OTHER (Home health OT for energy conservation) Comment DC from acute care OT Agreement: Yes Rehab Potential: Good Time/GCodes Start Time: 14:40 Stop Time: 15:00 Total Time Billed (hr/min): 20 Billed Treatment Time visit, 20 minutes low intensity evaluation LUKASZ CAMERON OT Jul 21, 2016 16:46
[2016-07-21 19:59] VITALS: BP 122/58
[2016-07-22 00:22] VITALS: BP 123/58
[2016-07-22] MEDS: RT-ALBUTEROL/IPRATROPIUM 3 ML (DUONEB) VIAL INH SCH ×2 (01:35→06:41)
[2016-07-22 04:05] VITALS: BP 146/69
[2016-07-22] MEDS: CATHETER FLUSH 10 ML SYR IV SCH (06:03)
[2016-07-22 06:32] LABS: BASOPHILS % (AUTO) 0 % (0-10); EOSINOPHILS % (AUTO) 0 % (0-10); LYMPHOCYTES # (AUTO) 0.6 X 10^3 (1.0-4.0); LYMPHOCYTES % (AUTO) 4 % (12-44); MEAN CORPUSCULAR HEMOGLOBIN 30 PG (25-34); MEAN CORPUSCULAR HGB CONC 31 G/DL (32-36); MEAN CORPUSCULAR VOLUME 98 FL (80-99); MEAN PLATELET VOLUME 10.3 FL (7.4-10.4); MONOCYTES # (AUTO) 1.1 X 10^3 (0.0-1.0); MONOCYTES % (AUTO) 7 % (0-12); NEUTROPHILS # (AUTO) 14.6 X 10^3 (1.8-7.8); NEUTROPHILS % (AUTO) 90 % (42-75); PLATELET COUNT 258 10^3/uL (130-400); RED BLOOD COUNT 4.31 10^6/uL (4.35-5.85); RED CELL DISTRIBUTION WIDTH 14.9 % (10.0-14.5); WHITE BLOOD COUNT 16.3 10^3/uL (4.3-11.0)
[2016-07-22] MEDS: RT-ADVAIR HFA 115/21 MCG PER PUFF IH SCH (06:41)
[2016-07-22 06:44] LABS: ANION GAP 10 MMOL/L (5-14); BLOOD UREA NITROGEN 19 MG/DL (7-18); BUN/CREATININE RATIO 28; CALCIUM 8.8 MG/DL (8.5-10.1); CARBON DIOXIDE 37 MMOL/L (21-32); CHLORIDE 96 MMOL/L (98-107); CREATININE SERUM 0.69 MG/DL (0.60-1.30); GFR ESTIMATED > 60; GLUCOSE 184 MG/DL (70-105); POTASSIUM 4.2 MMOL/L (3.6-5.0); SODIUM 143 MMOL/L (135-145)
[2016-07-22 07:24] LABS: ANISOCYTOSIS SLIGHT; BAND NEUTROPHILS 1 %; BASOPHILS % (MANUAL) 0 %; EOSINOPHILS % (MANUAL) 0 %; LYMPHOCYTES % (MANUAL) 3 %; NEUTROPHILS % (MANUAL) 91 %
[2016-07-22 07:40] VITALS: BP 130/60
[2016-07-22] MEDS ORDERED: UMECLIDINIUM BROMIDE (INCRUSE ELLIPTA) 7'S IH SCH (08:00)
[2016-07-22] MEDS: ASPIRIN E.C. 81 MG (ECOTRIN) TAB PO SCH (08:44)
[2016-07-22] MEDS: CEFDINIR 300 MG (OMNICEF) CAP PO SCH (08:44)
[2016-07-22] MEDS: predniSONE 20 MG TAB PO SCH (08:44)
[2016-07-22] MEDS: ENOXAPARIN 40 MG/0.4 ML (LOVENOX) SYR SQ SCH (08:45)
[2016-07-22] MEDS: FLUTICASONE NASAL SPRAY (FLONASE) 16 GM BTL NS SCH (08:46)
[2016-07-22] MEDS ORDERED: PRD10T PO (09:01)
[2016-07-22] MEDS ORDERED: CEFD300C3 PO (09:01)
--- NOTE | 2016-07-22 09:06 | Discharge Inst-Simple/Standard ---
Discharge Inst-Standard Discharge Medications New, Converted or Re-Newed RX: Transmitted to Pharmacy Patient Instructions/Follow Up Plan of Care/Instructions/FU: Complete course of cefdinir complete taper of prednisone use miralax to assist in bowel movements- start with 1 capful/day Activity as Tolerated: Yes Discharge Diet: Eat Small Frequent Meals Return to The Hospital For: fever worsening respiratory status Planned Outpatient Orders/Ref. Pneu Vac Indicated: Yes MENDOZA MTZ MD Jul 22, 2016 09:06
--- NOTE | 2016-07-22 09:10 | Discharge Summary ---
Diagnosis/Chief Complaint Date of Admission Jul 18, 2016 at 11:47 Date of Discharge Jul 22, 2016 Discharge Date: Admission Diagnosis Admission Diagnosis 81 yo M admitted 07/18/16 COPD exacerbation- failed outpt intervention- continue solumedrol IV, MAT protocol, rocephin 1g IV , CXR eng Constipation - pt does not want anything right now. Tachycardia- received duonebs- monitor Leukocytosis- on steroids- on rocephin - rechecking in AM HLD- hold statin colonic stricture- stable, hospitalized 09/2016 for diverticulitis- not a surgical candidate. DVT ppx- SCDs Code Status- DNI Dispo: continue to monitor status- on solumedrol , rocephin, MAT protocol Discharge Diagnosis COPD exacerbation- Constipation - HLD- colonic stricture due to diverticulosis- gynecomastia- DVT ppx- SCDs, lovenox Reason Hospital Visit 81-year-old male admitted for COPD exacerbation. Patient was seen at [facility] on 07.14.2016 for COPD exacerbation he was given 10 mg of dexamethasone IM and started azithromycin. He was also placed on a prednisone taper. Patient patient came to the ER though for continued difficulty breathing. Patient reports his biggest concern is that his heart is beating closer to 100 and he's normally running around the 70s for pulse. While in the ER patient received 125 mg of Solu-Medrol IV and 1 g of Rocephin. Chest x-ray did not show any consolidation or pneumonia. Patient's baseline oxygen requirement is 2 L nasal cannula and he is requiring 4 L currently. Patient denies nausea vomiting or diarrhea. He does feel constipated though and thinks this is contributing to his difficulty breathing as it is pressing up and restricting his thoracic volume. Patient reports his last hospitalization was in September 2015 for similar presentation of COPD exacerbation. Dr. Herrera rpg programmer help take care of him and he was discharged 8 days later per patient. Chart review showed that the September hospitalization was prolonged due to diverticulitis. This current illness started on [id number] was around the holidays and they had similar upper respiratory symptoms. Patient admitted for further observation and evaluation treatment. Discharge Summary Hospital Course Hospital Course 81 yo M admitted 07/18/16 for COPD exacerbation- he failed outpt intervention- MAT protocol, rocephin 1g IV switched to po cefdinir 07/21/16 , CXR neg, methylprednisolone iv switched to prednisone PO on 07/21/16 - He was given a 1 time dose of dexamethasone 10mg IV 07/20/16 Constipation - improved BM 07/19/16, 07/21/16 Tachycardia- monitor- improved- noted to occur when he does an albuterol breathing treatment Leukocytosis- on steroids- on rocephin - increased to 17K - trending down on day of discharge. HLD- resume statin- will consider d/c it as his 10 year mortality will respiratory in nature. colonic stricture due to diverticulosis- stable, hospitalized 09/2016 for diverticulitis- not a surgical candidate. -monitor- no new issues. gynecomastia- due for repeat mammogram in November 2016- previous workup negative. WBC continued to improve. Oxygen was down to 2.5 L oxygen. Deemed stable for discharge 07/22/16. He will complete course of antibiotics cefdinir and prednisone taper. Pt will also have home health services PT/OT/nursing. Pt to follow up at [facility] in 7-10 days. Labs Laboratory Tests 07/22/16 05:35: Blood Urea Nitrogen 19H, Carbon Dioxide Level 37H, Chloride Level 96L, Glucose Level 184H, Hemoglobin 13.0L, Lymphocytes # (Auto) 0.6L, Lymphocytes (%) (Auto) 4L, Mean Corpuscular Hemoglobin Concent 31L, Monocytes # (Auto) 1.1H, Neutrophils # (Auto) 14.6H, Neutrophils (%) (Auto) 90H, Red Blood Count 4.31L, Red Cell Distribution Width 14.9H, White Blood Count 16.3H Procedures None. Discharge Physical Examination Allergies: Coded Allergies: No Known Drug Allergies (Unverified , 01/19/09) Vitals & I&Os Vital Signs Date Time Temp Pulse Resp B/P Pulse Ox O2 Delivery O2 Flow Rate FiO2 07/22/16 11:25 93 20 130/60 95 Nasal Cannula 2.50 07/22/16 07:40 97.6 General Appearance: Alert, Oriented X3 HEENT: Atraumatic, PERRLA Respiratory: Clear to Auscultation, Other (tight sounding - near baseline- on baseline oxygen requirement 2.5L ) Cardiovascular: Regular Rate Abdominal: Normal Bowel Sounds, Soft Neuro: Normal Speech Psych/Mental Status: Mental Status NL Discharge Home Medications Reviewed and agree with Discharge Medication list on patient's Discharge Instruction sheet Condition at Discharge stable, improved Instructions to Patient/Family Please see electronic discharge instructions given to patient. Clinical Quality Measures DVT/VTE Risk/Contraindication: Risk Factor Score Per Nursin RFS Level Per Nursing on Admit: 4+=Very High MENDOZA MTZ MD Jul 22, 2016 09:10
--- NOTE | 2016-07-22 09:39 | Physical Therapy Progress Note ---
Therapy Progress Note Patient states he is dismissing to home with home health intervention. Patient declined PT at this time stating he needed to conserve his energy to return home. PT to dismiss patient from services at this time with home health to follow. 1 ref KYE SINGH PT Jul 22, 2016 09:39
[2016-07-22] MEDS ORDERED: RT-ALBUTEROL/IPRATROPIUM 3 ML (DUONEB) VIAL INH SCH (11:00)
[2016-07-22 11:25] VITALS: BP 130/60
[2016-08-05] MEDS ORDERED: PRD10T PO (07:59)
[2016-08-05] MEDS ORDERED: LORA0.5T PO (07:59)
== END 2016-07-22 11:25 | disposition home health service (06) | DRG 192 ==
LOC: EDUNIT# 11:07 → ER 11:09 → 4TH 11:47
PROVIDERS: ADMIT Family Medicine; ATTEND Family Medicine
DX: J44.1 Chronic obstructive pulmonary disease with (acute) exacerbation (principal); K59.00 Constipation, unspecified; K57.90 Diverticulosis of intestine, part unspecified, without perforation or abscess without bleeding; R00.0 Tachycardia, unspecified; E78.5 Hyperlipidemia, unspecified; I25.2 Old myocardial infarction; N62 Hypertrophy of breast; C61 Malignant neoplasm of prostate; Z99.81 Dependence on supplemental oxygen; Z87.891 Personal history of nicotine dependence
CPT/HCPCS: 36415; 71010; 80048; 80053; 80069; 83735; 85007; 85025; 85027; 94640; 94664; 94760; 96374

== ENCOUNTER → 2016-08-05 07:59 | Observation (INO) | payer MEDICARE, MEDICAID ==
--- OUTSIDE RECORDS SUMMARY | 2016-08-01 11:16 | XMS REPORT | Continuity of Care Document ---
Author Author [facility] Organization [facility] Address Unknown Phone Unavailable Care Team Providers Care Crowning Inspector Name Role Phone NO, LOCAL PHYSICIAN PCP Unavailable Insurance Providers Payer Name Policy Number Subscriber Name Relationship [employer]ps Medicare [id number] Shahid Sylvester 20 Self / Same As Patient [facility] [id number] Shahid Sylvester 20 Self / Same As Patient Advance Directives Directive Response Recorded Date/Time Advance Directives Yes 07/18/16 12:40pm Health Care Power of Ballistic Expert No 07/18/16 12:40pm Organ Donor No 07/18/16 12:40pm Resuscitation Status DNI 07/18/16 12:40pm Chief Complaint and Reason for Visit Chief Complaint COPD EXACERBATION Reason for Visit Occult blood positive stool Problems Active Problems Medical Problem Onset Date Status Abdominal pain Unknown Acute COPD exacerbation Unknown Acute Colitis Unknown Acute Diarrhea Unknown Acute Diverticulitis Unknown Acute Occult blood positive stool Unknown Acute Medications Current Home Medications Medication Dose Units Route Directions Days/Qty Instructions Start Date Aspirin 81 Mg 81 Mg Oral Daily 07/22/12 Multivitamin 1 Each 1 Tab Oral Daily 11/11/12 Tiotropium [place] 1 Inh 1 Cap Inhalation 0500 09/25/15 Budesonide/Formoterol Fumarate 10.2 Gm 2 Puff Inhalation Take Today At 5: 00AM & 5:00PM 09/25/15 Atorvastatin Calcium 10 Mg 10 Mg Oral Daily 09/25/15 Ipratropium/Albuterol Sulfate (Duoneb) 3 Ml 3 Ml Nebullizer Four Times Daily as needed for Shortness Of Breath 07/18/16 Fluticasone Propionate 16 Gm 2 Sprays Nasal Daily 07/18/16 Sodium Chloride 45 Ml 1-2 Sprays Nasal Three Times A Day as needed for Dry Nose 07/18/16 Krill/Om-3/Dha/Epa/Phospho/Ast 1 Each 1 Cap Oral Daily 07/18/16 Cholecalciferol (Vitamin D3) 1,000 Unit 1,000 Unit Oral Daily Albuterol Sulfate 8.5 Gm 1-2 Puff Inhalation Every 4HRS as needed for Shortness Of Breath 07/18/16 Tetrahydrozoline Hcl 15 Ml 1-2 Drops Each Eye Three Times A Day as needed for Dry Eyes 07/18/16 Prednisone 10 Mg 40 Mg Oral As Directed 20 TAKE 4 (10MG) TABS for 2 days then decrease by 1 tablet every 2 days 07/22/16 Cefdinir (Omnicef) 300 Mg 300 Mg Oral Twice A Day 14 07/22/16 Past Home Medications Medication Directions Ordered Status Albuterol 2.5 Mg/0.5 Ml Nebu, 01/19/09 Discontinued Ipratropium/Albuterol Sulfate 14.7 Gm Aer.w.adap, 01/19/09 Discontinued Albuterol/Ipratropium 3 Ml Nebu, 2 Puff Inhalation Four Times Daily 07/22/12 Discontinued Albuterol 17 Gm Inh, 1 [place] Inhalation Four Times Daily 07/22/12 Discontinued Mometasone Furoate 0.135 Gm Aer.pow.ba, 0.135 Gm Inhalation Twice A Day 07/22 Discontinued Mometasone Furoate 17 Gm [place], 1 [place] Nasal Four Times Daily 07/22/12 Discontinued Multivitamins 1 Each Capsule, 1 Each Oral Daily 07/22/12 Discontinued Ciprofloxacin Hcl 250 Mg Tablet, 250 Mg Oral Daily 11/11/12 Discontinued Albuterol Sulfate/Ipratropium 3 Ml Solution, 3 Ml Nebullizer Every 4-6 Hours as needed for Shortness Of Breath 11/11/12 Discontinued Albuterol 8.5 Gm Hfa.aer.ad, 2 Puff Inhalation Four Times Daily as needed 03/18 Discontinued Atorvastatin Calcium 10 Mg Tablet, 10 Mg Oral Daily 11/11/12 Discontinued Ipratropium/Albuterol Sulfate 14.7 Gm Aer.w.adap, 2 Puff Inhalation Q6hr Prn 11/11/12 Discontinued Mometasone Furoate 0.135 Gm Aer.pow.ba, 1 Puff Nasal Daily 11/11/12 Discontinued Tramadol Hcl 50 Mg Tab, 50 Mg Oral Every 12 Hours as needed 11/17/12 Discontinued Calcium Carbonate/Vitamin D3 1 Each Tablet, 1 Tab Oral Daily 09/19/15 Discontinued Ciprofloxacin Hcl 500 Mg Tablet, 500 Mg Oral Twice A Day 09/19/15 Discontinued Metronidazole 500 Mg Tablet, 500 Mg Oral Three Times A Day 09/19/15 Discontinued Lactobacillus Acidophilus 1 Each Capsule, 1 Each Oral Three Times A Day 09/18 Discontinued Ciprofloxacin Hcl 500 Mg Tablet, 500 Mg Oral Twice A Day 09/19/15 Discontinued Budesonide/Formoterol Fumarate 10.2 Gm Hfa.aer.ad, Unknown Dose Inhalation Twice A Day 09/25/15 Discontinued Ciprofloxacin Hcl 500 Mg Tablet, 500 Mg Oral Twice A Day 09/25/15 Discontinued L.acidoph & Paracasei,B.lactis 1 Each Capsule, 1 Cap Oral Three Times A Day 09/25/15 Discontinued Metronidazole 500 Mg Tablet, 500 Mg Oral Three Times A Day 09/25/15 Discontinued Albuterol Sulfate 6.7 Gm Hfa.aer.ad, 2 Puff Inhalation Four Times Daily as needed for Shortness Of Breath 09/25/15 Discontinued [Fluticasone] 50 Mcg Aerosol, 2 [place] Nasal Daily 09/28/15 Discontinued [Saline Nasal [place]] , Spr As Needed for Dry Nose 09/28/15 Discontinued [Saline Nasal [place]] , Spr As Needed for Dry Nose 09/28/15 Discontinued Albuterol Sulfate 6.7 Gm Hfa.aer.ad, 2 Puff Inhalation Four Times Daily as needed for Shortness Of Breath 10/03/15 Discontinued Albuterol Sulfate 8.5 Gm Hfa.aer.ad, 1-2 Puff Inhalation Every 4HRS 10/03/15 Discontinued Hydrocodone/Acetaminophen 1 Each Tablet, 1 Each Oral Every 8HRS as needed for Pain 10/03/15 Discontinued Ciprofloxacin Hcl 250 Mg Tablet, 250 Mg Oral Daily 10/03/15 Discontinued Albuterol/Ipratropium 4 Gm [place], 1 Puff Inhalation Four Times Daily as needed for Shortness Of Breath 07/18/16 Discontinued Ciprofloxacin Hcl 250 Mg Tablet, 250 Mg Oral Daily 07/18/16 Discontinued Prednisone 10 Mg Tab, Oral As Directed 07/18/16 Discontinued Social History Social History Problem Response Recorded Date/Time Alcohol Use Occasionally Uses 09/25/2015 5:12pm Recreational Drug Use No 09/25/2015 5:12pm Recent Foreign Travel No 07/22/2012 3:31pm Recent Infectious Disease Exposure No 07/22/2012 3:31pm Hospitalization with Isolation Denies 11/17/2012 10:19am Smoking Status Former Smoker 07/18/2016 12:40pm Do you dip or chew tobacco? Yes 09/25/2015 5:17pm Type Used Smokeless Tobacco 07/22/2016 1:54pm Recent Hopitalizations No 07/18/2016 12:40pm Hospitalization with Isolation Denies 11/17/2012 10:19am Query Response Start Date Stop Date Smoking Status Former Smoker 11/17/2004 Hospital Discharge Instructions Patient Instructions Physician Instructions New, Converted or Re-Newed RX: Transmitted to Pharmacy Plan of Care/Instructions/FU: Complete course of cefdinir complete taper of prednisone use miralax to assist in bowel movements- start with 1 capful/day Activity as Tolerated: Yes Discharge Diet: Eat Small Frequent Meals Return to The Hospital For: fever worsening respiratory status Pneu Vac Indicated: Yes Care Plan Patient Instructions:: Complete course of cefdinircomplete taper of prednisone use miralax to assist in bowel movements- start with 1 capful/day Plan of Care Discharge Date 07/22/16 11:25am Disposition 06 HOME HEALTH SERVICE Instructions/Education Provided Exacerbation of COPD Prescriptions See Medication Section Referrals MENDOZA MTZ MD (Unspecified) - 07/29/16 Address: [address] [place] [id number] Reason(s) for Referral: COPD exacerbation 11:30 AM Care Plan and Goals See Discharge Instructions Section Functional Status Query Response Date Recorded Patient Orientation Person Place Time Situation July 21, 2016 10:51am Patient Orientation Person Place Time Situation July 22, 2016 1:53pm Comprehension Ability Understands Concepts July 20, 2016 8:10pm Allergies, Adverse Reactions, Alerts No known allergies. Immunizations No immunization records. Vital Signs Acute Vital Signs Vital Response Date/Time Temperature (Fahrenheit) 97.6 degrees F (97.6 - 99.5) 07/22/2016 11:25am Temperature (Calculated Celsius) 36.21989 degrees C (36.4 - 37.5) 07/22/2016 7:40am Temperature Source Tympanic 07/22/2016 11:25am Pulse Rate (adult) 93 bpm (60 - 90) 07/22/2016 11:25am Respiratory Rate 20 bpm (12 - 24) 07/22/2016 11:25am O2 Sat by Pulse Oximetry 95 % (88 - 100) 07/22/2016 11:25am Blood Pressure 130/60 mm Hg 07/22/2016 11:25am Blood Pressure Mean 83 mm Hg 07/22/2016 7:40am Pain Numeric Pain Scale 0-No Pain 07/22/2016 11:25am Height (Feet) 5 feet 07/18/2016 2:07pm Height (Inches) 8.50 inches 07/18/2016 2:07pm Height (Calculated Centimeters) 173.699467 cm 07/18/2016 2:07pm Weight (Pounds) 130 pounds 07/18/2016 2:07pm Weight (Ounces) 1.0 oz 07/18/2016 2:07pm Weight (Calculated Grams) 51458.36 gm 07/18/2016 2:07pm Weight (Calculated Kilograms) 58.651207 kilograms 07/18/2016 2:07pm Calculated BMI 19.5 07/18/2016 2:07pm Capillary Refill Capillary Refill Less Than 3 Seconds 07/18/2016 11:10am Results Laboratory Results Test Name Result Units Flags Reference Collection Date/Time Result Date/ Time Comments White Blood Count 16.3 10^3/uL H 4.3-11.0 07/22/2016 5:35am 07/22/2016 6: 33am Red Blood Count 4.31 10^6/uL L 4.35-5.85 07/22/2016 5:35am 07/22/2016 6: 33am Hemoglobin 13.0 G/DL L 13.3-17.7 07/22/2016 5:35am 07/22/2016 6:33am Hematocrit 42 % 40-54 07/22/2016 5:35am 07/22/2016 6:33am Mean Corpuscular Volume 98 FL 80-99 07/22/2016 5:35am 07/22/2016 6: 33am Mean Corpuscular Hemoglobin 30 PG 25-34 07/22/2016 5:35am 07/22/2016 6: 33am Mean Corpuscular Hemoglobin Concent 31 G/DL L 32-36 07/22/2016 5:35am 6:33am Red Cell Distribution Width 14.9 % H 10.0-14.5 07/22/2016 5:35am 2016 6:33am Platelet Count 258 10^3/uL 130-400 07/22/2016 5:35am 07/22/2016 6:33am Mean Platelet Volume 10.3 FL 7.4-10.4 07/22/2016 5:35am 07/22/2016 6: 33am Neutrophils (%) (Auto) 90 % H 42-75 07/22/2016 5:35am 07/22/2016 6:33am Lymphocytes (%) (Auto) 4 % L 12-44 07/22/2016 5:35am 07/22/2016 6:33am Monocytes (%) (Auto) 7 % 0-12 07/22/2016 5:35am 07/22/2016 6:33am Eosinophils (%) (Auto) 0 % 0-10 07/22/2016 5:35am 07/22/2016 6:33am Basophils (%) (Auto) 0 % 0-10 07/22/2016 5:35am 07/22/2016 6:33am Neutrophils # (Auto) 14.6 X 10^3 H 1.8-7.8 07/22/2016 5:35am 07/22/2016 6 :33am Lymphocytes # (Auto) 0.6 X 10^3 L 1.0-4.0 07/22/2016 5:35am 07/22/2016 6: 33am Monocytes # (Auto) 1.1 X 10^3 H 0.0-1.0 07/22/2016 5:35am 07/22/2016 6: 33am Eosinophils # (Auto) 0.0 10^3/uL 0.0-0.3 07/22/2016 5:35am 07/22/2016 6 :33am Basophils # (Auto) 0.0 10^3/uL 0.0-0.1 07/22/2016 5:35am 07/22/2016 6: 33am Neutrophils % (Manual) 91 % 07/22/2016 5:35am 07/22/2016 7:24am Band Neutrophils 1 % 07/22/2016 5:35am 07/22/2016 7:24am Lymphocytes % (Manual) 3 % 07/22/2016 5:35am 07/22/2016 7:24am Monocytes % (Manual) 5 % 07/22/2016 5:35am 07/22/2016 7:24am Eosinophils % (Manual) 0 % 07/22/2016 5:35am 07/22/2016 7:24am Basophils % (Manual) 0 % 07/22/2016 5:35am 07/22/2016 7:24am Blood Morphology Comment NORMAL 07/18/2016 11:21am 07/18/2016 11: 57am Anisocytosis SLIGHT 07/22/2016 5:35am 07/22/2016 7:24am Sodium Level 143 MMOL/L 135-145 07/22/2016 5:35am 07/22/2016 6:46am Potassium Level 4.2 MMOL/L 3.6-5.0 07/22/2016 5:35am 07/22/2016 6:46am Chloride Level 96 MMOL/L L 98-107 07/22/2016 5:35am 07/22/2016 6:46am Carbon Dioxide Level 37 MMOL/L H 21-32 07/22/2016 5:35am 07/22/2016 6: 46am Anion Gap 10 MMOL/L 5-14 07/22/2016 5:35am 07/22/2016 6:46am Blood Urea Nitrogen 19 MG/DL H 7-18 07/22/2016 5:35am 07/22/2016 6:46am Creatinine 0.69 MG/DL 0.60-1.30 07/22/2016 5:35am 07/22/2016 6:46am BUN/Creatinine Ratio 28 07/22/2016 5:35am 07/22/2016 6:46am Estimat Glomerular Filtration Rate > 60 07/22/2016 5:35am 2016 6:46am GFR INTERPRETIVE DATA UNITS FOR ESTIMATED GFR (eGFR): mL/min/1.73 M2 REFERENCE RANGE FOR ESTIMATED GFR (eGFR) eGFR NORMAL eGFR >60 MODERATELY DECREASED eGFR 30-59 SEVERLY DECREASED eGFR 15-29 KIDNEY FAILURE <15 (OR DIALYSIS) Glucose Level 184 MG/DL H 70-105 07/22/2016 5:35am 07/22/2016 6:46am Calcium Level 8.8 MG/DL 8.5-10.1 07/22/2016 5:35am 07/22/2016 6:46am Phosphorus Level 3.9 MG/DL 2.3-4.7 07/20/2016 4:0807/20/2016 5:06am Magnesium Level 2.3 MG/DL 1.8-2.4 07/20/2016 4:0807/20/2016 5:06am Total Bilirubin 0.6 MG/DL 0.1-1.0 07/18/2016 11:07/18/2016 11: 52am Alkaline Phosphatase 59 U/L 40-136 07/18/2016 11:07/18/2016 11: 52am Aspartate Amino Transf (AST/SGOT) 25 U/L 5-34 07/18/2016 11:2016 11:52am Alanine Aminotransferase (ALT/SGPT) 31 U/L 0-55 07/18/2016 11: 11:52am Total Protein 7.0 G/DL 6.4-8.2 07/18/2016 11:07/18/2016 11:52am Albumin 3.9 G/DL 3.2-4.5 07/20/2016 4:08am 07/20/2016 5:06am Procedures No known history of procedures. Encounters Encounter Location Arrival/Admit Date Discharge/Depart Date Attending Provider Discharged Inpatient [facility] 07/18/16 11:47am 11:25am MENDOZA MTZ MD Recent Diagnosis Occult blood positive stool
--- NOTE | 2016-08-01 11:29 | History & Physicial ---
History of Present Illness History of Present Illness Reason for visit/HPI 81 yo M seen at [facility] for follow up before the weekend- he was discharged on for pneumonia and COPD exacerbation. He finished his prednisone and cefdinir 07/29/16. He feels like he completely cleared the pneumonia and was feeling good most of last week. But, Last few days has been spitting up more- more gunky- feels like it sits at the back of his pharynx and does not get it up. Feels like he has a viral infection now. Denies any fevers. On baseline oxygen requirement. Uses 2.5L with resting and 4L oxygen with ambulation. Pt is getting more anxious. Feels like his inhalers are doing great. No sick contacts. Does his exercises. CBC done 2 days ago- WBC- continued to improve from discharge. Mucinex has helped. But still not improving. Does not feel like he is getting any better- Feels the need to be admitted. Pt follows with Dr. Herrera, pulmonology- Date of Admission Aug 01, 2016 at 11:11 I consulted on this patient on 08/01/16 11:24 Attending Physician Twan Mtz MD Admitting Physician No,Local Physician Consult Dr. Herrera Allergies and Home Medications Allergies Coded Allergies: No Known Drug Allergies (Unverified , 01/19/09) Home Medications Albuterol Sulfate 8.5 Gm Hfa.aer.ad 1-2 PUFF IH Q4H PRN PRN SHORTNESS OF BREATH (Reported) Aspirin 81 Mg Tabec 81 MG PO DAILY (Reported) Atorvastatin Calcium 10 Mg Tablet 10 MG PO DAILY (Reported) Budesonide/Formoterol Fumarate 10.2 Gm Hfa.aer.ad 2 PUFF IH 0500,1700 (Reported ) Cholecalciferol (Vitamin D3) 1,000 Unit Capsule 1,000 UNIT PO DAILY (Reported) Fluticasone Propionate 16 Gm [place].susp 2 SPRAYS NS DAILY (Reported) Ipratropium/Albuterol Sulfate 3 Ml Ampul.neb 3 ML NEB QID PRN PRN SHORTNESS OF BREATH (Reported) Krill/Om-3/Dha/Epa/Phospho/Ast 1 Each Capsule 1 CAP PO DAILY (Reported) Multivitamin 1 Each Tablet 1 TAB PO DAILY (Reported) Sodium Chloride 45 Ml [place] 1-2 SPRAYS NS TID PRN PRN DRY NOSE (Reported) Tetrahydrozoline HCl 15 Ml Drops 1-2 DROPS OU TID PRN PRN DRY EYES (Reported) Tiotropium [place] 1 Inh Aerp 1 CAP IH 0500 (Reported) Past Esjgafq-Gkyqau-Pqjrdn Hx Patient Social History Alcohol Use: Occasionally Uses Recreational Drug Use: No Former smoker/When Quit: November 17, 2004 Type Used: Smokeless Tobacco Sexual Abuse: No Recent Foreign Travel: No Contact w/other who traveled: No Recent Hopitalizations: No Immunizations Up To Date Tetanus Booster (TDap): More than 5yrs Date of Pneumonia Vaccine: Jul 06, 2012 Date of Influenza Vaccine: Jul 11, 2016 Seasonal Allergies Seasonal Allergies: No Surgeries HX Surgeries: No Surgeries: Tonsillectomy Respiratory Hx Respiratory Disorders: Yes Cardiovascular Hx Cardiovascular Disorders: Yes Cardiac Disorders: Heart Attack Neurological Hx Neurological Disorders: No Reproductive System Hx Reproductive Disorders: No Genitourinary Hx Genitourinary Disorders: Yes Genitourinary Disorders: Prostate Problems Gastrointestinal Hx Gastrointestinal Disorders: Yes (DIVERTICULOSIS, COLON STRICTURE) Gastrointestinal Disorders: Diverticulosis Musculoskeletal Hx Musculoskeletal Disorders: No Endocrine Hx Endocrine Disorders: No HEENT HX ENT Disorders: No Cancer Hx Cancer: Yes Cancer: Prostate Psychosocial Hx Psychiatric Problems: No Integumentary HX Skin/Integumentary Disorder: No Blood Transfusions Hx Blood Disorders: No Adverse Reaction to a Blood Tr: No Family Medical History Family Hx: Patient reports no known family medical history. Constitutional: No dizziness, No fever, malaise weakness EENTM: No blurred vision, No double vision, No ear pain, No hearing loss Respiratory: cough dyspnea on exertionNo hemoptysis, phlegm short of breath wheezing Cardiovascular: No edema Genitourinary: No decreased output, No dysuria, No frequency Musculoskeletal: No back pain, No gout, No joint pain Skin: No change in color, No change in hair/nails Psychiatric/Neurological: Denies Anxiety, Denies Depressed, Denies Emotional Problems Physical Exam Vital Signs Vital Sign - Last 12Hours 08/01/16 08/01/16 11:37 14:07 Pulse Ox 99 O2 Flow Rate 2.50 Capillary Refill : General Appearance: Anxious Mild Distress HEENT: PERRL/EOMI Neck: Full Range of Motion Non Tender Supple Respiratory: Chest Non Tender Decreased Breath Sounds (throughout, tight sounding, wheeze on occassion) Cardiovascular: Regular Rate, Rhythm No Edema Gastrointestinal: Normal Bowel Sounds Non Tender Soft Rectal: Deferred Back: Normal Inspection No CVA Tenderness Extremity: Normal Range of Motion Non Tender No Calf Tenderness Neurologic/Psychiatric: Alert Oriented x3 No Motor/Sensory Deficits Skin: Warm/Dry Other (bruising noted., scabs) Assessment/Plan Assessment and Plan 81 yo M COPD exacerbation- solumedrol, MAT protocol. starting azithromycin WBC improving since 07/22/16 COPD exacerbation discharge- Constipation - monitor- may add miralax if need be. HLD- stopped statin- h/ocolonic stricture due to h/o diverticulosis- monitor no recent issues. gynecomastia- stable- will be getting a repeat mammo in 6 months. anxiety- lorazepam 0.5mg prn DVT ppx- SCDs, lovenox Disp: admitted for observation- CBC,CMP ordered- Dr. Herrera consulted. Pulm rehab ordered- may start titrating solumedrol from 40mg q6hr to q8hr tomorrow- likely discharge pt home on taper (Thursday08/04/16)- and continuing 15mg prednisone daily for ~2-4weeks TWAN MTZ MD Aug 01, 2016 11:29
[2016-08-01 13:10] LABS: BASOPHILS % (AUTO) 0 % (0-10); EOSINOPHILS # (AUTO) 0.1 10^3/uL (0.0-0.3); EOSINOPHILS % (AUTO) 1 % (0-10); LYMPHOCYTES # (AUTO) 0.7 X 10^3 (1.0-4.0); LYMPHOCYTES % (AUTO) 6 % (12-44); MEAN CORPUSCULAR HEMOGLOBIN 30 PG (25-34); MEAN CORPUSCULAR HGB CONC 31 G/DL (32-36); MEAN CORPUSCULAR VOLUME 98 FL (80-99); MEAN PLATELET VOLUME 9.4 FL (7.4-10.4); MONOCYTES # (AUTO) 1.1 X 10^3 (0.0-1.0); MONOCYTES % (AUTO) 9 % (0-12); NEUTROPHILS # (AUTO) 9.8 X 10^3 (1.8-7.8); NEUTROPHILS % (AUTO) 85 % (42-75); PLATELET COUNT 203 10^3/uL (130-400); RED BLOOD COUNT 3.98 10^6/uL (4.35-5.85); RED CELL DISTRIBUTION WIDTH 14.6 % (10.0-14.5); WHITE BLOOD COUNT 11.6 10^3/uL (4.3-11.0)
[2016-08-01 13:31] LABS: ALANINE AMINOTRANSFERASE 23 U/L (0-55); ALBUMIN 3.5 G/DL (3.2-4.5); ANION GAP 7 MMOL/L (5-14); ASPARTATE AMINO TRANSFERASE 17 U/L (5-34); BILIRUBIN,TOTAL 0.6 MG/DL (0.1-1.0); BLOOD UREA NITROGEN 7 MG/DL (7-18); BUN/CREATININE RATIO 12; CALCIUM 8.4 MG/DL (8.5-10.1); CARBON DIOXIDE 35 MMOL/L (21-32); CHLORIDE 97 MMOL/L (98-107); CREATININE SERUM 0.57 MG/DL (0.60-1.30); GFR ESTIMATED > 60; GLUCOSE 84 MG/DL (70-105); SODIUM 139 MMOL/L (135-145); TOTAL PROTEIN 5.6 G/DL (6.4-8.2)
[2016-08-01 13:58] LABS: EOSINOPHILS % (MANUAL) 1 %; LYMPHOCYTES % (MANUAL) 4 %; NEUTROPHILS % (MANUAL) 89 %
[2016-08-01] MEDS: RT-ALBUTEROL/IPRATROPIUM 3 ML (DUONEB) VIAL INH SCH ×2 (14:07→18:55)
[2016-08-01] MEDS: CATHETER FLUSH 10 ML SYR IV SCH ×2 (14:20→20:27)
[2016-08-01 15:30] VITALS: BP 130/66
[2016-08-01] MEDS: methylPREDNISolone 40 MG/ML (Solu-MEDROL) VIAL IV SCH ×3 (18:25→18:31)
[2016-08-01] MEDS: ENOXAPARIN 40 MG/0.4 ML (LOVENOX) SYR SC SCH (18:25)
[2016-08-01 19:57] VITALS: BP 113/55
[2016-08-01] MEDS: guaiFENesin (MUCINEX) 600 MG TAB PO SCH (20:27)
[2016-08-01] MEDS: LORazepam 0.5 MG (ATIVAN) TABLET PO PRN (21:03)
[2016-08-02] VITALS: BP 128/69
[2016-08-02] MEDS: methylPREDNISolone 40 MG/ML (Solu-MEDROL) VIAL IV SCH ×4 (00:05→20:39)
[2016-08-02 04:00] VITALS: BP 111/55
[2016-08-02] MEDS: CATHETER FLUSH 10 ML SYR IV SCH ×3 (05:42→20:40)
[2016-08-02 05:52] LABS: BASOPHILS % (AUTO) 0 % (0-10); EOSINOPHILS % (AUTO) 0 % (0-10); LYMPHOCYTES # (AUTO) 0.2 X 10^3 (1.0-4.0); LYMPHOCYTES % (AUTO) 2 % (12-44); MEAN CORPUSCULAR HEMOGLOBIN 30 PG (25-34); MEAN CORPUSCULAR HGB CONC 31 G/DL (32-36); MEAN CORPUSCULAR VOLUME 98 FL (80-99); MEAN PLATELET VOLUME 9.4 FL (7.4-10.4); MONOCYTES # (AUTO) 0.2 X 10^3 (0.0-1.0); MONOCYTES % (AUTO) 2 % (0-12); NEUTROPHILS # (AUTO) 10.6 X 10^3 (1.8-7.8); NEUTROPHILS % (AUTO) 96 % (42-75); PLATELET COUNT 201 10^3/uL (130-400); RED BLOOD COUNT 3.79 10^6/uL (4.35-5.85); RED CELL DISTRIBUTION WIDTH 14.2 % (10.0-14.5)
--- NOTE | 2016-08-02 05:52 | Pulmonary Consultation ---
History of Present Illness History of Present Illness Date of Consultation 08/02/16 05:47 Date of Admission History of Present Illness 81yo with recent hospitalization for COPDAE and pneumonia was discharged with cefdinir and prednisone which he finished 07/29/16. Since finishing Abx he has been having progressive yellow sputum production. Denies any fevers. Uses 2.5L oxygen at home with resting and 4L oxygen with ambulation. I am consulted for pulmonary management. Allergies and Home Medications Allergies Coded Allergies: No Known Drug Allergies (Unverified , 01/19/09) Home Medications Albuterol Sulfate 8.5 Gm Hfa.aer.ad 1-2 PUFF IH Q4H PRN PRN SHORTNESS OF BREATH (Reported) Aspirin 81 Mg Tabec 81 MG PO DAILY (Reported) Atorvastatin Calcium 10 Mg Tablet 10 MG PO DAILY (Reported) Budesonide/Formoterol Fumarate 10.2 Gm Hfa.aer.ad 2 PUFF IH 0500,1700 (Reported ) Cholecalciferol (Vitamin D3) 1,000 Unit Capsule 1,000 UNIT PO DAILY (Reported) Fluticasone Propionate 16 Gm [place].susp 2 SPRAYS NS DAILY (Reported) Ipratropium/Albuterol Sulfate 3 Ml Ampul.neb 3 ML NEB QID PRN PRN SHORTNESS OF BREATH (Reported) Krill/Om-3/Dha/Epa/Phospho/Ast 1 Each Capsule 1 CAP PO DAILY (Reported) Multivitamin 1 Each Tablet 1 TAB PO DAILY (Reported) Sodium Chloride 45 Ml [place] 1-2 SPRAYS NS TID PRN PRN DRY NOSE (Reported) Tetrahydrozoline HCl 15 Ml Drops 1-2 DROPS OU TID PRN PRN DRY EYES (Reported) Tiotropium [place] 1 Inh Aerp 1 CAP IH 0500 (Reported) Past Amfrqlo-Kqxnkr-Lfwsja Hx Patient Social History Alcohol Use: Occasionally Uses Recreational Drug Use: No Smoking Status: Former Smoker Type Used: Cigarettes, Smokeless Tobacco Former Smoker/When Quit: November 17, 2004 Recent Foreign Travel: No Contact w/Someone Who Travel: No Recent Infectious Disease Expo: No Recent Hopitalizations: No Physical Abuse Screen: No Sexual Abuse: No Immunizations Up To Date Tetanus Booster (TDap): More than 5yrs Date of Pneumonia Vaccine: Jul 06, 2012 Date of Influenza Vaccine: Jul 14, 2016 Seasonal Allergies Seasonal Allergies: No Surgeries HX Surgeries: No Surgeries: Tonsillectomy Respiratory Hx Respiratory Disorders: Yes Respiratory Disorders: COPD, Emphysema Cardiovascular Hx Cardiac Disorders: Yes Cardiac Disorders: Heart Attack Neurological Hx Neurological Disorders: No Reproductive System Hx Reproductive Disorders: No Genitourinary Hx Genitourinary Disorders: Yes Genitourinary Disorders: Prostate Problems Gastrointestinal Hx Gastrointestinal Disorders: Yes (DIVERTICULOSIS, COLON STRICTURE) Gastrointestinal Disorders: Diverticulosis Musculoskeletal Hx Musculoskeletal Disorders: No Endocrine Hx Endocrine Disorders: No HEENT HX ENT Disorders: No Cancer Hx Cancer: Yes Cancer: Prostate Psychosocial Hx Psychiatric Problems: No Integumentary HX Skin/Integumentary Disorder: No Blood Transfusions Hx Blood Disorders: No Adverse Reaction to a Blood Tr: No Family Medical History Family Medial History: FH: cancer 19 MOTHER FH: emphysema 19 MOTHER FH: lung cancer G8 SISTER Exam Exam Vital Signs Date Time Temp Pulse Resp B/P Pulse Ox O2 Delivery O2 Flow Rate FiO2 08/02/16 04:00 96.7 76 20 111/55 98 Nasal Cannula 2.00 08/02/16 00:00 97.9 97 20 128/69 98 Nasal Cannula 2.00 08/01/16 19:57 98.4 102 19 113/55 93 08/01/16 19:50 Nasal Cannula 3.00 08/01/16 18:55 94 2.50 08/01/16 15:30 98.4 84 20 130/66 99 08/01/16 15:30 98.4 84 20 130/66 99 08/01/16 15:30 98.4 84 20 130/66 99 08/01/16 14:07 97 2.50 08/01/16 11:37 99 08/01/16 10:09 94 2.50 I & O 08/02/16 07:00 Intake Total 1630 ml Output Total 1175 ml Balance 455 ml General Appearance: Anxious Mild Distress HEENT: PERRL/EOMI Neck: Full Range of Motion Non Tender Supple Respiratory: Chest Non Tender Decreased Breath Sounds (throughout, tight sounding, wheeze on occassion) Cardiovascular: Regular Rate, Rhythm No Edema Extremity: Normal Range of Motion Non Tender No Calf Tenderness Neurologic/Psychiatric: Alert Oriented x3 No Motor/Sensory Deficits Skin: Warm/Dry Other (bruising noted., scabs) Results Lab Laboratory Tests 08/01/16 12:55 Assessment/Plan Assessment/Plan severe oxygen dependent COPDAE -solumedrol, SVNS, -Add advair Clinical Quality Measures DVT/VTE Risk/Contraindication: Risk Factor Score Per Nursin RFS Level Per Nursing on Admit: 3=High CHRISTIANO ROBLES DO Aug 02, 2016 05:52 CHRISTIANO ROBLES DO Aug 02, 2016 05:52
[2016-08-02] MEDS: RT-ALBUTEROL/IPRATROPIUM 3 ML (DUONEB) VIAL INH SCH ×4 (07:47→19:03)
--- NOTE | 2016-08-02 08:06 | Progress Note (SOAP) ---
Subjective Subjective/Events-last exam patient states she's feeling better today. Patient pulse ox 98 this morning. Patient feels he is becoming human again. COPD with acute exacerbation Objective Exam Vital Signs Date Time Temp Pulse Resp B/P Pulse Ox O2 Delivery O2 Flow Rate FiO2 08/02/16 07:49 99 2.50 08/02/16 04:00 96.7 76 20 111/55 98 Nasal Cannula 2.00 08/02/16 00:00 97.9 97 20 128/69 98 Nasal Cannula 2.00 08/01/16 19:57 98.4 102 19 113/55 93 08/01/16 19:50 Nasal Cannula 3.00 08/01/16 18:55 94 2.50 08/01/16 15:30 98.4 84 20 130/66 99 08/01/16 15:30 98.4 84 20 130/66 99 08/01/16 15:30 98.4 84 20 130/66 99 08/01/16 14:07 97 2.50 08/01/16 11:37 99 08/01/16 10:09 94 2.50 I & O 08/02/16 07:00 Intake Total 2130 ml Output Total 1575 ml Balance 555 ml Capillary Refill : General Appearance: No Apparent Distress HEENT: Normal ENT Inspection Neck: Full Range of Motion Normal Inspection Respiratory: Decreased Breath Sounds Other (picking up brown phlegm) Cardiovascular: Regular Rate, Rhythm No Murmur Gastrointestinal: soft Results Lab Laboratory Tests 08/01/16 12:55 08/02/16 05:40 Laboratory Tests 08/01/16 12:55: Alanine Aminotransferase (ALT/SGPT) 23, Albumin 3.5, Alkaline Phosphatase 54, Anion Gap 7, Aspartate Amino Transf (AST/SGOT) 17, BUN/Creatinine Ratio 12, Basophils # (Auto) 0.0, Basophils (%) (Auto) 0, Blood Morphology Comment NORMAL , Blood Urea Nitrogen 7, Calcium Level 8.4L, Carbon Dioxide Level 35H, Chloride Level 97L, Creatinine 0.57L, Eosinophils # (Auto) 0.1, Eosinophils % (Manual) 1 , Eosinophils (%) (Auto) 1, Estimat Glomerular Filtration Rate > 60, Glucose Level 84, Hematocrit 39L, Hemoglobin 12.1L, Lymphocytes # (Auto) 0.7L, Lymphocytes % (Manual) 4, Lymphocytes (%) (Auto) 6L, Mean Corpuscular Hemoglobin 30, Mean Corpuscular Hemoglobin Concent 31L, Mean Corpuscular Volume 98, Mean Platelet Volume 9.4, Monocytes # (Auto) 1.1H, Monocytes % (Manual) 6, Monocytes (%) (Auto) 9, Neutrophils # (Auto) 9.8H, Neutrophils % (Manual) 89, Neutrophils (%) (Auto) 85H, Platelet Count 203, Potassium Level 4.0, Red Blood Count 3.98L, Red Cell Distribution Width 14.6H, Sodium Level 139, Total Bilirubin 0.6, Total Protein 5.6L, White Blood Count 11.6H 08/02/16 05:40: Basophils # (Auto) 0.0, Basophils (%) (Auto) 0, Eosinophils # (Auto) 0.0, Eosinophils (%) (Auto) 0, Hematocrit 37L, Hemoglobin 11.5L, Lymphocytes # (Auto ) 0.2L, Lymphocytes (%) (Auto) 2L, Mean Corpuscular Hemoglobin 30, Mean Corpuscular Hemoglobin Concent 31L, Mean Corpuscular Volume 98, Mean Platelet Volume 9.4, Monocytes # (Auto) 0.2, Monocytes (%) (Auto) 2, Neutrophils # (Auto ) 10.6H, Neutrophils (%) (Auto) 96H, Platelet Count 201, Red Blood Count 3.79L, Red Cell Distribution Width 14.2, White Blood Count 11.0 Assessment/Plan Assessment/Plan Assess & Plan/Chief Complaint COPD with acute exacerbation. Diagnosis/Problems: Clinical Quality Measures DVT/VTE Risk/Contraindication: Risk Factor Score Per Nursin RFS Level Per Nursing on Admit: 3=High MORGAN NAIK DO Aug 02, 2016 08:05
[2016-08-02 08:28] VITALS: BP 144/69
[2016-08-02] MEDS: LORazepam 0.5 MG (ATIVAN) TABLET PO PRN (09:00)
[2016-08-02] MEDS: ASPIRIN E.C. 81 MG (ECOTRIN) TAB PO SCH (09:00)
[2016-08-02] MEDS: AZITHROMYCIN 250 MG TAB (ZITHROMAX) PO SCH (09:00)
[2016-08-02] MEDS: FLUTICASONE NASAL SPRAY (FLONASE) 16 GM BTL NS SCH (09:00)
[2016-08-02] MEDS: guaiFENesin (MUCINEX) 600 MG TAB PO SCH ×2 (09:00→20:39)
--- NOTE | 2016-08-02 09:07 | Diagnostic Imaging Report ---
INDICATION: Shortness of breath, congestion, emphysema. TECHNIQUE: Two view chest 9:00 a.m. CORRELATION STUDY: 07/20/2016 FINDINGS: Lung loya hyperinflated with changes of COPD. No acute infiltrate. Heart size, mediastinum, and vasculature overall stable. Suggestion of asymmetric increased density over the left chest appearing to represent perhaps breast or chest wall. Visualized osseous structures are unremarkable. IMPRESSION: 1. Changes of COPD without evidence for acute bony abnormality. Dictated by: Dictated on workstation # [id number]
[2016-08-02 12:00] VITALS: BP 103/50
[2016-08-02] MEDS: ENOXAPARIN 40 MG/0.4 ML (LOVENOX) SYR SC SCH (15:28)
[2016-08-02 16:12] VITALS: BP 128/67
[2016-08-02 19:34] VITALS: BP 129/58
[2016-08-03] VITALS: BP 114/51
[2016-08-03 04:38] LABS: BASOPHILS % (AUTO) 0 % (0-10); EOSINOPHILS % (AUTO) 0 % (0-10); LYMPHOCYTES # (AUTO) 0.4 X 10^3 (1.0-4.0); LYMPHOCYTES % (AUTO) 2 % (12-44); MEAN CORPUSCULAR HEMOGLOBIN 30 PG (25-34); MEAN CORPUSCULAR HGB CONC 31 G/DL (32-36); MEAN CORPUSCULAR VOLUME 98 FL (80-99); MEAN PLATELET VOLUME 9.6 FL (7.4-10.4); MONOCYTES # (AUTO) 0.7 X 10^3 (0.0-1.0); MONOCYTES % (AUTO) 4 % (0-12); NEUTROPHILS # (AUTO) 16.7 X 10^3 (1.8-7.8); NEUTROPHILS % (AUTO) 94 % (42-75); PLATELET COUNT 212 10^3/uL (130-400); RED BLOOD COUNT 3.92 10^6/uL (4.35-5.85); RED CELL DISTRIBUTION WIDTH 14.3 % (10.0-14.5); WHITE BLOOD COUNT 17.8 10^3/uL (4.3-11.0)
[2016-08-03 05:00] LABS: ANION GAP 7 MMOL/L (5-14); BLOOD UREA NITROGEN 16 MG/DL (7-18); BUN/CREATININE RATIO 24; CARBON DIOXIDE 36 MMOL/L (21-32); CHLORIDE 97 MMOL/L (98-107); CREATININE SERUM 0.66 MG/DL (0.60-1.30); GFR ESTIMATED > 60; GLUCOSE 140 MG/DL (70-105); POTASSIUM 4.9 MMOL/L (3.6-5.0); SODIUM 140 MMOL/L (135-145)
[2016-08-03] MEDS: methylPREDNISolone 40 MG/ML (Solu-MEDROL) VIAL IV SCH ×3 (05:38→23:01)
[2016-08-03] MEDS: CATHETER FLUSH 10 ML SYR IV SCH ×3 (05:38→20:31)
[2016-08-03] MEDS: RT-ALBUTEROL/IPRATROPIUM 3 ML (DUONEB) VIAL INH SCH ×4 (07:23→20:06)
[2016-08-03 08:12] VITALS: BP 136/60
--- NOTE | 2016-08-03 08:15 | Progress Note (SOAP) ---
Subjective Subjective/Events-last exam patient feels 80 percent better today. Patient chews and told not to chew. Patient not having problems with breathing Objective Exam Vital Signs Date Time Temp Pulse Resp B/P Pulse Ox O2 Delivery O2 Flow Rate FiO2 08/03/16 07:41 Nasal Cannula 3.00 08/03/16 07:23 99 2.50 08/03/16 00:00 96.9 70 20 114/51 100 Nasal Cannula 2.50 08/02/16 20:00 Nasal Cannula 3.00 08/02/16 19:34 96.6 94 18 129/58 95 Nasal Cannula 2.50 08/02/16 19:03 96 3.00 08/02/16 16:12 96.6 86 16 128/67 99 Nasal Cannula 2.50 08/02/16 15:33 97 2.50 08/02/16 12:00 96.9 86 20 103/50 98 Nasal Cannula 2.50 08/02/16 11:04 97 2.50 08/02/16 08:28 97.3 89 22 144/69 98 Nasal Cannula 2.50 I & O 08/03/16 07:00 Intake Total 2680 ml Output Total 1600 ml Balance 1080 ml Capillary Refill : General Appearance: No Apparent Distress WD/WN HEENT: Normal ENT Inspection Neck: Normal Inspection Respiratory: Decreased Breath Sounds Cardiovascular: Regular Rate, Rhythm No Murmur Gastrointestinal: non tender soft distended Results Lab Laboratory Tests 08/03/16 04:25 Laboratory Tests 08/03/16 04:25: Anion Gap 7, BUN/Creatinine Ratio 24, Basophils # (Auto) 0.0, Basophils (%) ( Auto) 0, Blood Urea Nitrogen 16, Calcium Level 9.0, Carbon Dioxide Level 36H, Chloride Level 97L, Creatinine 0.66, Eosinophils # (Auto) 0.0, Eosinophils (%) ( Auto) 0, Estimat Glomerular Filtration Rate > 60, Glucose Level 140H, Hematocrit 38L, Hemoglobin 11.8L, Lymphocytes # (Auto) 0.4L, Lymphocytes (%) ( Auto) 2L, Mean Corpuscular Hemoglobin 30, Mean Corpuscular Hemoglobin Concent 31L, Mean Corpuscular Volume 98, Mean Platelet Volume 9.6, Monocytes # (Auto) 0.7, Monocytes (%) (Auto) 4, Neutrophils # (Auto) 16.7H, Neutrophils (%) (Auto) 94H, Platelet Count 212, Potassium Level 4.9, Red Blood Count 3.92L, Red Cell Distribution Width 14.3, Sodium Level 140, White Blood Count 17.8H Assessment/Plan Assessment/Plan Assess & Plan/Chief Complaint COPD with acute exacerbation.. . 08/03/16. COPD with acute exacerbation. Patient feeling better White blood cell elevated due to Solu-Medrol Diagnosis/Problems: Clinical Quality Measures DVT/VTE Risk/Contraindication: Risk Factor Score Per Nursin RFS Level Per Nursing on Admit: 3=High MORGAN NAIK DO Aug 03, 2016 08:15
[2016-08-03] MEDS: guaiFENesin (MUCINEX) 600 MG TAB PO SCH ×2 (08:35→20:30)
[2016-08-03] MEDS: AZITHROMYCIN 250 MG TAB (ZITHROMAX) PO SCH (08:35)
[2016-08-03] MEDS: FLUTICASONE NASAL SPRAY (FLONASE) 16 GM BTL NS SCH (08:35)
[2016-08-03] MEDS: LORazepam 0.5 MG (ATIVAN) TABLET PO PRN ×2 (08:35→17:20)
[2016-08-03] MEDS: ASPIRIN E.C. 81 MG (ECOTRIN) TAB PO SCH (08:35)
[2016-08-03] MEDS: ENOXAPARIN 40 MG/0.4 ML (LOVENOX) SYR SC SCH (15:00)
[2016-08-03 16:02] VITALS: BP 131/62
[2016-08-03 23:30] VITALS: BP 127/61
[2016-08-04] MEDS: LORazepam 0.5 MG (ATIVAN) TABLET PO PRN ×3 (02:04→20:20)
[2016-08-04 04:56] LABS: BASOPHILS % (AUTO) 0 % (0-10); EOSINOPHILS % (AUTO) 0 % (0-10); LYMPHOCYTES # (AUTO) 0.3 X 10^3 (1.0-4.0); LYMPHOCYTES % (AUTO) 2 % (12-44); MEAN CORPUSCULAR HEMOGLOBIN 31 PG (25-34); MEAN CORPUSCULAR HGB CONC 31 G/DL (32-36); MEAN CORPUSCULAR VOLUME 99 FL (80-99); MEAN PLATELET VOLUME 9.3 FL (7.4-10.4); MONOCYTES # (AUTO) 0.5 X 10^3 (0.0-1.0); MONOCYTES % (AUTO) 3 % (0-12); NEUTROPHILS # (AUTO) 14.7 X 10^3 (1.8-7.8); NEUTROPHILS % (AUTO) 95 % (42-75); PLATELET COUNT 190 10^3/uL (130-400); RED BLOOD COUNT 3.86 10^6/uL (4.35-5.85); RED CELL DISTRIBUTION WIDTH 14.7 % (10.0-14.5); WHITE BLOOD COUNT 15.4 10^3/uL (4.3-11.0)
[2016-08-04 05:15] LABS: ANION GAP 6 MMOL/L (5-14); BLOOD UREA NITROGEN 20 MG/DL (7-18); BUN/CREATININE RATIO 29; CALCIUM 8.7 MG/DL (8.5-10.1); CARBON DIOXIDE 38 MMOL/L (21-32); CHLORIDE 97 MMOL/L (98-107); CREATININE SERUM 0.68 MG/DL (0.60-1.30); GFR ESTIMATED > 60; GLUCOSE 156 MG/DL (70-105); POTASSIUM 4.4 MMOL/L (3.6-5.0); SODIUM 141 MMOL/L (135-145)
[2016-08-04] MEDS: CATHETER FLUSH 10 ML SYR IV SCH ×3 (06:20→20:23)
[2016-08-04] MEDS: methylPREDNISolone 40 MG/ML (Solu-MEDROL) VIAL IV SCH (06:20)
--- NOTE | 2016-08-04 06:45 | Pulmonary Progress Note ---
Subjective Subjective/Events-last exam No complications noted. Pt feels improved. Exam Exam Vital Signs Date Time Temp Pulse Resp B/P Pulse Ox O2 Delivery O2 Flow Rate FiO2 08/03/16 23:30 98.3 99 20 127/61 97 Nasal Cannula 2.50 08/03/16 21:31 97 2.50 08/03/16 20:20 95 NIV/Bilevel 2.50 08/03/16 16:02 96.6 102 18 131/62 95 Nasal Cannula 2.50 08/03/16 14:33 97 2.50 08/03/16 10:39 96 2.50 08/03/16 08:12 96.7 93 22 136/60 94 Nasal Cannula 2.50 08/03/16 07:41 Nasal Cannula 3.00 08/03/16 07:23 99 2.50 I & O 08/04/16 07:00 Intake Total 2110 ml Output Total 1200 ml Balance 910 ml General Appearance: No Apparent Distress WD/WN HEENT: Normal ENT Inspection Neck: Normal Inspection Respiratory: Decreased Breath Sounds Wheezing Cardiovascular: Regular Rate, Rhythm No Murmur Gastrointestinal: non tender soft distended Extremity: Normal Range of Motion Non Tender No Calf Tenderness Neurologic/Psychiatric: Alert Oriented x3 No Motor/Sensory Deficits Skin: Warm/Dry Other (bruising noted., scabs) Results Lab Laboratory Tests 08/03/16 04:25 08/04/16 04:40 Assessment/Plan Assessment/Plan severe oxygen dependent COPDAE -solumedrol-- change to prednisone taper , SVNS, advair Clinical Quality Measures DVT/VTE Risk/Contraindication: Risk Factor Score Per Nursin RFS Level Per Nursing on Admit: 3=High CHRISTIANO ROBLES DO Aug 04, 2016 06:45
[2016-08-04] MEDS: RT-ALBUTEROL/IPRATROPIUM 3 ML (DUONEB) VIAL INH SCH ×4 (07:51→20:01)
--- NOTE | 2016-08-04 08:16 | Progress Note (SOAP) ---
Subjective Subjective/Events-last exam 81 yo M with COPD exacerbation- feels like he is doing better. Admits being anxious because his spiriva was not started. He had a good bowel movement yesterday that always seems to make him breath a little better. Feeling like going home in next couple days. Review of Systems General: No Chills, No Night Sweats, Appetite HEENT: No Head Aches, No Visual Changes, No Eye Pain Pulmonary: Dyspnea Cough Cardiovascular: No: Chest Pain, Palpitations Gastrointestinal: No: Abdominal Pain, Nausea, Vomiting Genitourinary: No Dysuria, No Frequency Musculoskeletal: No: shoulder pain Neurological: No: Numbness, Weakness Objective Exam Vital Signs Date Time Temp Pulse Resp B/P Pulse Ox O2 Delivery O2 Flow Rate FiO2 08/04/16 07:55 96 08/04/16 07:51 96 2.50 08/03/16 23:30 98.3 99 20 127/61 97 Nasal Cannula 2.50 08/03/16 21:31 97 2.50 08/03/16 20:20 95 NIV/Bilevel 2.50 08/03/16 16:02 96.6 102 18 131/62 95 Nasal Cannula 2.50 08/03/16 14:33 97 2.50 08/03/16 10:39 96 2.50 I & O 08/04/16 07:00 Intake Total 2110 ml Output Total 1200 ml Balance 910 ml Capillary Refill : General Appearance: No Apparent Distress WD/WN Anxious HEENT: PERRL/EOMI Neck: Non Tender Supple Respiratory: Chest Non Tender Decreased Breath Sounds Wheezing Cardiovascular: Regular Rate, Rhythm No Edema Gastrointestinal: normal bowel sounds non tender soft Extremity: Non Tender Neurologic/Psychiatric: Alert Oriented x3 Skin: Warm/Dry Results Lab Laboratory Tests 08/04/16 04:40: Anion Gap 6, BUN/Creatinine Ratio 29, Basophils # (Auto) 0.0, Basophils (%) ( Auto) 0, Blood Urea Nitrogen 20H, Calcium Level 8.7, Carbon Dioxide Level 38H, Chloride Level 97L, Creatinine 0.68, Eosinophils # (Auto) 0.0, Eosinophils (%) ( Auto) 0, Estimat Glomerular Filtration Rate > 60, Glucose Level 156H, Hematocrit 38L, Hemoglobin 11.8L, Lymphocytes # (Auto) 0.3L, Lymphocytes (%) ( Auto) 2L, Mean Corpuscular Hemoglobin 31, Mean Corpuscular Hemoglobin Concent 31L, Mean Corpuscular Volume 99, Mean Platelet Volume 9.3, Monocytes # (Auto) 0.5, Monocytes (%) (Auto) 3, Neutrophils # (Auto) 14.7H, Neutrophils (%) (Auto) 95H, Platelet Count 190, Potassium Level 4.4, Red Blood Count 3.86L, Red Cell Distribution Width 14.7H, Sodium Level 141, White Blood Count 15.4H Assessment/Plan Assessment/Plan Assess & Plan/Chief Complaint 81 yo M COPD exacerbation- solumedrol-> prednisone taper- MAT protocol. azithromycin -improving Constipation - monitor- may add miralax if need be. 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 gynecomastia- stable- will be getting a repeat mammo in 6 months. anxiety- lorazepam 0.5mg prn DVT ppx- SCDs, lovenox Dispo: continue tapering steroids- suspect we will discharge pt 08/05/16- on prednisone taper and hold at 15mg prednisone daily. 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 Diagnosis/Problems: Clinical Quality Measures DVT/VTE Risk/Contraindication: Risk Factor Score Per Nursin RFS Level Per Nursing on Admit: 3=High MENDOZA MTZ MD Aug 04, 2016 8:16 am
[2016-08-04 08:36] VITALS: BP 127/62
[2016-08-04] MEDS: UMECLIDINIUM BROMIDE (INCRUSE ELLIPTA) 7'S IH SCH (09:10)
[2016-08-04] MEDS: RT-ADVAIR HFA 115/21 MCG PER PUFF IH SCH ×2 (09:11→20:01)
[2016-08-04] MEDS: guaiFENesin (MUCINEX) 600 MG TAB PO SCH ×2 (09:32→20:20)
[2016-08-04] MEDS: AZITHROMYCIN 250 MG TAB (ZITHROMAX) PO SCH (09:33)
[2016-08-04] MEDS: ASPIRIN E.C. 81 MG (ECOTRIN) TAB PO SCH (09:33)
[2016-08-04] MEDS: predniSONE 10 MG TAB PO SCH (09:33)
[2016-08-04] MEDS: FLUTICASONE NASAL SPRAY (FLONASE) 16 GM BTL NS SCH (09:35)
[2016-08-04] MEDS: ENOXAPARIN 40 MG/0.4 ML (LOVENOX) SYR SC SCH (15:34)
[2016-08-04 16:28] VITALS: BP 136/68
[~2016-08-05] VITALS: Ht 174 cm; Wt 58.8 kg
[2016-08-05] VITALS: BP 160/79
--- NOTE | 2016-08-05 05:58 | Pulmonary Progress Note ---
Subjective Subjective/Events-last exam PT is doing much better/ Exam Exam Vital Signs Date Time Temp Pulse Resp B/P Pulse Ox O2 Delivery O2 Flow Rate FiO2 08/05/16 00:00 97.7 104 20 160/79 94 Nasal Cannula 2.50 08/04/16 20:20 Nasal Cannula 2.50 08/04/16 20:01 93 2.50 08/04/16 16:28 96.8 111 20 136/68 91 Nasal Cannula 2.50 08/04/16 15:33 97 2.50 08/04/16 11:21 97 2.50 08/04/16 09:13 96 2.50 08/04/16 09:11 96 2.50 08/04/16 08:36 97.0 84 18 127/62 96 Nasal Cannula 2.50 08/04/16 08:25 97 Nasal Cannula 2.50 08/04/16 07:55 96 08/04/16 07:51 96 2.50 I & O 08/05/16 07:00 Intake Total 1310 ml Output Total 1025 ml Balance 285 ml General Appearance: No Apparent Distress WD/WN HEENT: Normal ENT Inspection Neck: Normal Inspection Respiratory: Decreased Breath Sounds Wheezing Cardiovascular: Regular Rate, Rhythm No Murmur Gastrointestinal: non tender soft distended Extremity: Normal Range of Motion Non Tender No Calf Tenderness Neurologic/Psychiatric: Alert Oriented x3 No Motor/Sensory Deficits Skin: Warm/Dry Other (bruising noted., scabs) Results Lab Laboratory Tests 08/04/16 04:40 Assessment/Plan Assessment/Plan severe oxygen dependent COPDAE -prednisone taper SVNS, advair Pt is ok for discharge from pulmonary standpoint. I will have him f/u with me in office in 3-4wks. Continue prednisone taper and previous INH. Clinical Quality Measures DVT/VTE Risk/Contraindication: Risk Factor Score Per Nursin RFS Level Per Nursing on Admit: 3=High CHRISTIANO ROBLES DO Aug 05, 2016 05:58
[2016-08-05] MEDS: CATHETER FLUSH 10 ML SYR IV SCH (06:19)
[2016-08-05] MEDS: RT-ALBUTEROL/IPRATROPIUM 3 ML (DUONEB) VIAL INH SCH (06:52)
[2016-08-05] MEDS: RT-ADVAIR HFA 115/21 MCG PER PUFF IH SCH (06:52)
[2016-08-05] MEDS: UMECLIDINIUM BROMIDE (INCRUSE ELLIPTA) 7'S IH SCH (06:53)
[~2016-08-05 07:59] MED LIST changes: +AZITHROMYCIN IV ADD-VANTAGE 500 MG in SODIUM CHLORIDE (ADD-VANTAGE) 250 ML IV NR; +CATHETER FLUSH 10 ML SYR IV PRN; +CEFD300C3 PO; +CHOL10007 PO; +CIPR250T3 PO; +FLUT16SP22 NS; +IPRA3AMP NEB; +IPRA4AER INH; +KRIL1CAP22 PO; +LORA0.5T PO; +LORazepam 0.5 MG (ATIVAN) TABLET PO NR; +PRD10T PO; +RT-ALBUTEROL/IPRATROPIUM 3 ML (DUONEB) VIAL INH PRN; +SALINE NASAL SPRAY (OCEAN) 45 ML BTL NS PRN; +SODI45SP6 NS; +TETRAHYDROZOLINE (VISINE) 0.05% 15 ML BTL OU PRN; +[UNRECOGNIZED DRUG - CODE] OU; +methylPREDNISolone 40 MG/ML (Solu-MEDROL) VIAL IV NR
[2016-08-05 08:00] VITALS: BP 146/70
--- NOTE | 2016-08-05 08:03 | Discharge Inst-Simple/Standard ---
Discharge Inst-Standard Discharge Medications New, Converted or Re-Newed RX: Other (lorazepam on chart, prednisone at [facility]) Patient Instructions/Follow Up Plan of Care/Instructions/FU: Continue prednisone taper- will keep at 15mg daily until pt sees Dr. Herrera in 3 weeks. Follow up at Dr. Herrera office in 3 weeks Follow up at [facility] in 1-2 weeks Activity as Tolerated: Yes Discharge Diet: Low Fat/Low Cholesterol Return to [facility] For: Fever, worsening respiratory status MENDOZA MTZ MD Aug 05, 2016 08:02
--- NOTE | 2016-08-05 08:11 | Discharge Summary ---
Diagnosis/Chief Complaint Date of Admission Aug 01, 2016 at 10:30 Date of Discharge Aug 05, 2016 Discharge Date: Admission Diagnosis Admission Diagnosis 81 yo M COPD exacerbation- solumedrol, MAT protocol. starting azithromycin WBC improving since 07/22/16 COPD exacerbation discharge- Constipation - monitor- may add miralax if need be. HLD- stopped statin- h/ocolonic stricture due to h/o diverticulosis- monitor no recent issues. gynecomastia- stable- will be getting a repeat mammo in 6 months. anxiety- lorazepam 0.5mg prn DVT ppx- SCDs, lovenox Disp: admitted for observation- CBC,CMP ordered- Dr. Herrera consulted. Pulm rehab ordered- may start titrating solumedrol from 40mg q6hr to q8hr tomorrow- likely discharge pt home on taper (Thursday08/04/16)- and continuing 15mg prednisone daily for ~2-4weeks Discharge Diagnosis COPD exacerbation- Constipation - HLD- h/o colonic stricture due to h/o diverticulosis- gynecomastia- anxiety- Reason Hospital Visit 81 yo M seen at [facility] for follow up before the weekend- he was discharged on for pneumonia and COPD exacerbation. He finished his prednisone and cefdinir 07/29/16. He feels like he completely cleared the pneumonia and was feeling good most of last week. But, Last few days has been spitting up more- more gunky- feels like it sits at the back of his pharynx and does not get it up. Feels like he has a viral infection now. Denies any fevers. On baseline oxygen requirement. Uses 2.5L with resting and 4L oxygen with ambulation. Pt is getting more anxious. Feels like his inhalers are doing great. No sick contacts. Does his exercises. CBC done 2 days ago- WBC- continued to improve from discharge. Mucinex has helped. But still not improving. Does not feel like he is getting any better- Feels the need to be admitted. Pt follows with Dr. Herrera, pulmonology- Discharge Summary Hospital Course Hospital Course 81 yo M admitted for COPD exacerbation- He was started on solumedrol IV, MAT protocol and completed azithromycin course. WBC improving since 07/22/16 COPD exacerbation discharge. His WBC increased after starting the solumedrol but began to trend down. Pt reports that he has improved and does not think his lung are going to get any better than they are today, day of discharge 2016. In regards to his Constipation - he has a couple bowel movements. No issues with his colonic stricture. Anxiety was well controlled on lorazepam prn. Will send him home with a script - hopefully he will not need it once he gets into the familiar setting of his home. I do not plan to continue the lorazepam skilled nursing. Labs Laboratory Tests 08/04/16 04:40: Blood Urea Nitrogen 20H, Carbon Dioxide Level 38H, Chloride Level 97L, Glucose Level 156H, Hematocrit 38L, Hemoglobin 11.8L, Lymphocytes # (Auto) 0.3L, Lymphocytes (%) (Auto) 2L, Mean Corpuscular Hemoglobin Concent 31L, Neutrophils # (Auto) 14.7H, Neutrophils (%) (Auto) 95H, Red Blood Count 3.86L, Red Cell Distribution Width 14.7H, White Blood Count 15.4H Procedures None. Consultations Dr. Herrera Discharge Physical Examination Allergies: Coded Allergies: No Known Drug Allergies (Unverified , 01/19/09) Vitals & I&Os Vital Signs Date Time Temp Pulse Resp B/P Pulse Ox O2 Delivery O2 Flow Rate FiO2 08/05/16 11:18 105 24 146/70 96 2.50 08/05/16 08:00 97.0 Nasal Cannula General Appearance: Alert, Oriented X3 HEENT: Atraumatic, PERRLA Respiratory: Other (tight sounding throughout but moving air- some wheezing-) Cardiovascular: Regular Rate Abdominal: Normal Bowel Sounds, Soft Skin: No Rashes, Other (abrasions, skin tears on arms) Neuro: Normal Speech Psych/Mental Status: Mental Status NL, Mood NL Discussion & Recommendations Discussed with patient as time progresses it appears his respiratory status is declining. He will follow up with Dr. Herrera in 3 weeks- Discharge Home Medications Reviewed and agree with Discharge Medication list on patient's Discharge Instruction sheet Condition at Discharge stable Instructions to Patient/Family Please see electronic discharge instructions given to patient. Clinical Quality Measures DVT/VTE Risk/Contraindication: Risk Factor Score Per Nursin RFS Level Per Nursing on Admit: 3=High MENDOZA MTZ MD Aug 05, 2016 08:11 Risk Factor Score Per Nursin RFS Level Per Nursing on Admit: 3=High MENDOZA MTZ MD Aug 05, 2016 08:11
[2016-08-05] MEDS: LORazepam 0.5 MG (ATIVAN) TABLET PO PRN (09:28)
[2016-08-05] MEDS: predniSONE 10 MG TAB PO SCH (09:28)
[2016-08-05] MEDS: ASPIRIN E.C. 81 MG (ECOTRIN) TAB PO SCH (09:28)
[2016-08-05] MEDS: FLUTICASONE NASAL SPRAY (FLONASE) 16 GM BTL NS SCH (09:29)
[2016-08-05] MEDS: guaiFENesin (MUCINEX) 600 MG TAB PO SCH (09:30)
[2016-08-05 11:18] VITALS: BP 146/70
== END | disposition home or self-care (01) ==
LOC: 4TH 08-01 10:30 → UNDOADMOB 08-01 11:11
PROVIDERS: ADMIT Family Medicine; ATTEND Family Medicine
DX: J44.1 Chronic obstructive pulmonary disease with (acute) exacerbation (principal); K59.00 Constipation, unspecified; E78.5 Hyperlipidemia, unspecified; N62 Hypertrophy of breast; F41.9 Anxiety disorder, unspecified
CPT/HCPCS: 36415; 71020; 80048; 80053; 85007; 85025; 85027; 94640; 94664; 94760; 99211; G0378

== ENCOUNTER 2017-03-31 12:33 | Emergency (ER) | payer MEDICARE, MEDICAID ==
[~2017-03-31] VITALS: Ht 174 cm; Wt 58.8 kg
[~2017-03-31 12:33] MED LIST changes: -AZITHROMYCIN IV ADD-VANTAGE 500 MG in SODIUM CHLORIDE (ADD-VANTAGE) 250 ML IV NR; -CATHETER FLUSH 10 ML SYR IV PRN; -FLUT16SP22 NS; +FLUT16SP22 NSEACH; -LORazepam 0.5 MG (ATIVAN) TABLET PO NR; -RT-ALBUTEROL/IPRATROPIUM 3 ML (DUONEB) VIAL INH PRN; -SALINE NASAL SPRAY (OCEAN) 45 ML BTL NS PRN; -SODI45SP6 NS; +SODI45SP9 NS; -TETRAHYDROZOLINE (VISINE) 0.05% 15 ML BTL OU PRN; -methylPREDNISolone 40 MG/ML (Solu-MEDROL) VIAL IV NR
[2017-03-31] MEDS ORDERED: methylPREDNISolone 125 MG (Solu-MEDROL) VIAL IVP ONE (12:45)
[2017-03-31] MEDS ORDERED: RT-ALBUTEROL/IPRATROPIUM 3 ML (DUONEB) VIAL INH ONE (12:45)
--- NOTE | 2017-03-31 12:46 | ED Dyspnea ---
General Stated Complaint: SOA Source of Information: Patient, Family Exam Limitations: No Limitations History of Present Illness Time Seen by Provider: 12:44 Initial Comments To ER accompanied by his daughter with reports of shortness of breath that began today. Patient has COPD and wears oxygen 4 L/m [id number]. He increases this to 5 L/m when he is taking a shower or up moving around. Typically drops into the upper 80 percent range when he is active even with his oxygen but today while seeing for left eye drainage his saturation dropped to 77 percent and was very slow to rise. He denies any new increased cough or fevers. He sees Dr. Herrera. Daughter also reports that he has new bilateral lower extremity swelling over the past week. Timing/Duration: 24 Hours Severity: Moderate Allergies and Home Medications Allergies Coded Allergies: No Known Drug Allergies (Unverified , 01/19/09) Home Medications Albuterol Sulfate 8.5 Gm Hfa.aer.ad, 1-2 PUFF IH Q4H PRN for SHORTNESS OF BREATH , (Reported) Aspirin 81 Mg Tabec, 81 MG PO DAILY, (Reported) Budesonide/Formoterol Fumarate 10.2 Gm Hfa.aer.ad, 2 PUFF IH 0500,1700, ( Reported) Cholecalciferol (Vitamin D3) 1,000 Unit Capsule, 1,000 UNIT PO DAILY, (Reported) Fluticasone Propionate 16 Gm [place].susp, 2 SPRAYS NS DAILY, (Reported) Ipratropium/Albuterol Sulfate 3 Ml Ampul.neb, 3 ML NEB QID PRN for SHORTNESS OF BREATH, (Reported) Krill/Om-3/Dha/Epa/Phospho/Ast 1 Each Capsule, 1 CAP PO DAILY, (Reported) Lorazepam 0.5 Mg Tablet, 0.5 MG PO BID PRN PRN for ANXIETY, #30 Prescribed by: MENDOZA MTZ on 08/05/16 0759 Multivitamin 1 Each Tablet, 1 TAB PO DAILY, (Reported) Prednisone 10 Mg Tab, 10 MG PO DAILY, #60 take 5 tablets for 2 days, 4 tablets for 2 days, 3 tab for 2 days, then 1.5 tablets thereafter Prescribed by: MENDOZA MTZ on 08/05/16 0759 Sodium Chloride 45 Ml [place], 1-2 SPRAYS NS TID PRN for DRY NOSE, (Reported) Tetrahydrozoline HCl 15 Ml Drops, 1-2 DROPS OU TID PRN for DRY EYES, (Reported) Tiotropium [place] 1 Inh Aerp, 1 CAP IH 0500, (Reported) Constitutional: see HPI EENTM: see HPI Respiratory: see HPI Cardiovascular: no symptoms reported Genitourinary: no symptoms reported Musculoskeletal: no symptoms reported Skin: no symptoms reported Psychiatric/Neurological: No Symptoms Reported Endocrine: No Symptoms Reported Hematologic/Lymphatic: No Symptoms Reported Past Ehzwnrk-Znvgxw-Jlasnp Hx Patient Social History Alcohol Beverage of Choice: Beer Type Used: Cigarettes, Smokeless Tobacco Former Smoker, Quit: Aug 01, 2006 Recent Foreign Travel: No Contact w/Someone Who Travel: No Recent Hopitalizations: No Immunizations Up To Date Tetanus Booster (TDap): More than 5yrs Date of Pneumonia Vaccine: Jul 06, 2012 Date of Influenza Vaccine: Jul 14, 2016 Seasonal Allergies Seasonal Allergies: No Surgeries History of Surgeries: Yes Surgeries: Tonsillectomy Respiratory History of Respiratory Disorde: Yes Respiratory Disorders: COPD, Emphysema Currently Using CPAP: No Currently Using BIPAP: No Cardiovascular History of Cardiac Disorders: Yes Cardiac Disorders: Heart Attack Neurological History of Neurological Disord: No Reproductive System Hx Reproductive Disorders: No Genitourinary History of Genitourinary Disor: Yes Genitourinary Disorders: Prostate Problems Gastrointestinal History of Gastrointestinal Di: Yes (DIVERTICULOSIS, COLON STRICTURE) Gastrointestinal Disorders: Diverticulosis Musculoskeletal History of Musculoskeletal Dis: No Endocrine History of Endocrine Disorders: No HEENT History of HEENT Disorders: No Cancer History of Cancer: Yes Cancer: Prostate Psychosocial History of Psychiatric Problem: No Integumentary History of Skin or Integumenta: No Blood Transfusions History of Blood Disorders: No Adverse Reaction to a Blood Tr: No Family Medical History Family Medial History: FH: cancer 19 MOTHER FH: emphysema 19 MOTHER FH: lung cancer G8 SISTER Physical Exam Vital Signs Vital Sign - Last 12Hours 03/31/17 12:35 Temp 99.3 Pulse 77 Resp 26 B/P (MAP) 120/77 Pulse Ox 90 O2 Delivery Nasal Cannula O2 Flow Rate 4.00 Capillary Refill : General Appearance: No Apparent Distress, WD/WN, Mild Distress, Other (pursed- lip breathing noted) HEENT: PERRL/EOMI, TMs Normal Neck: Full Range of Motion, Normal Inspection Respiratory: No Accessory Muscle Use, Decreased Breath Sounds Cardiovascular: Regular Rate, Rhythm, Normal Peripheral Pulses Gastrointestinal: Normal Bowel Sounds, Non Tender, Soft Extremity: Other (1+ bilateral lower extremity edema) Neurologic/Psychiatric: Alert, Oriented x3 Skin: Normal Color, Warm/Dry Progress/Results/Core Measures Results/Orders Lab Results Laboratory Tests Test 03/31/17 12:55 03/31/17 13:05 Range/Units White Blood Count 11.6 H 4.3-11.0 10^3/uL Red Blood Count 4.09 L 4.35-5.85 10^6/uL Hemoglobin 12.0 L 13.3-17.7 G/DL Hematocrit 41 40-54 % Mean Corpuscular Volume 100 H 80-99 FL Mean Corpuscular Hemoglobin 29 25-34 PG Mean Corpuscular Hemoglobin Concent 29 L 32-36 G/DL Red Cell Distribution Width 14.7 H 10.0-14.5 % Platelet Count 203 130-400 10^3/uL Mean Platelet Volume 10.4 7.4-10.4 FL Neutrophils (%) (Auto) 87 H 42-75 % Lymphocytes (%) (Auto) 5 L 12-44 % Monocytes (%) (Auto) 7 0-12 % Eosinophils (%) (Auto) 1 0-10 % Basophils (%) (Auto) 0 0-10 % Neutrophils # (Auto) 10.0 H 1.8-7.8 X 10^3 Lymphocytes # (Auto) 0.6 L 1.0-4.0 X 10^3 Monocytes # (Auto) 0.9 0.0-1.0 X 10^3 Eosinophils # (Auto) 0.1 0.0-0.3 10^3/uL Basophils # (Auto) 0.0 0.0-0.1 10^3/uL Neutrophils % (Manual) 85 % Lymphocytes % (Manual) 5 % Monocytes % (Manual) 10 % Eosinophils % (Manual) 0 % Basophils % (Manual) 0 % Band Neutrophils 0 % Blood Morphology Comment NORMAL Sodium Level 144 135-145 MMOL/L Potassium Level 4.3 3.6-5.0 MMOL/L Chloride Level 97 L 98-107 MMOL/L Carbon Dioxide Level 38 H 21-32 MMOL/L Anion Gap 9 5-14 MMOL/L Blood Urea Nitrogen 15 7-18 MG/DL Creatinine 0.71 0.60-1.30 MG/DL Estimat Glomerular Filtration Rate > 60 BUN/Creatinine Ratio 21 Glucose Level 105 70-105 MG/DL Calcium Level 9.0 8.5-10.1 MG/DL Total Bilirubin 0.5 0.1-1.0 MG/DL Aspartate Amino Transf (AST/SGOT) 18 5-34 U/L Alanine Aminotransferase (ALT/SGPT) 18 0-55 U/L Alkaline Phosphatase 67 40-136 U/L Troponin I < 0.30 <0.30 NG/ML B-Type Natriuretic Peptide 82.1 <100.0 PG/ML Total Protein 6.8 6.4-8.2 GM/DL Albumin 3.9 3.2-4.5 GM/DL Blood Gas Puncture Site RT RAD Blood Gas Patient Temperature 98.6 Arterial Blood pH 7.37 7.37-7.43 Arterial Blood Partial Pressure CO2 74 *H 35-45 MMHG Arterial Blood Partial Pressure O2 134 H 79-93 MMHG Arterial Blood HCO3 41 *H 23-27 MMOL/L Arterial Blood Total CO2 43.7 H 21.0-31.0 MMOL/L Arterial Blood Oxygen Saturation 100 94-100 % Arterial Blood Base Excess 15.3 H -2.5-2.5 MMOL/L Cole Test YES-POS Blood Gas Ventilator Setting NO Blood Gas Inspired Oxygen 4L My Orders Orders - MICHELET MARIN APRN Cbc With Automated Diff (03/31/17 12:42) Comprehensive Metabolic Panel (03/31/17 12:42) BNP (03/31/17 12:42) Ekg Tracing (03/31/17 12:42) Chest 1 View, Ap/Pa Only (03/31/17 12:42) Saline Lock/Iv-Start (03/31/17 12:42) Methylprednisolone Sod Succ (Solu-Medrol (03/31/17 12:45) Albuterol/Ipra Inhalation Soln (Duoneb I (03/31/17 12:45) Svn Sm Volume Nebulizer Rt-Rfs (03/31/17 12:42) Troponin I (03/31/17 12:46) Arterial Blood Gas (03/31/17 13:08) Manual Differential (03/31/17 12:55) Medications Given in ED Current Medications Medications Dose Ordered Sig/Bekah Route Start Time Stop Time Status Last Admin Dose Admin Albuterol/ Ipratropium 3 ml ONCE ONCE INH 9/26/17 12:45 03/31/17 12:46 DC 03/31/17 12:56 3 ML Methylprednisolone Sodium Succinate 125 mg ONCE ONCE IVP 03/31/17 12:45 03/31/17 12:46 DC 03/31/17 13:17 125 MG Vital Signs/I&O Vital Sign - Last 12Hours 03/31/17 03/31/17 03/31/17 12:35 12:56 13:56 Temp 99.3 Pulse 77 75 Resp 26 22 B/P (MAP) 120/77 Pulse Ox 90 97 96 O2 Delivery Nasal Cannula Nasal Cannula O2 Flow Rate 4.00 4.00 40.00 Departure Communication (Admissions) Progress Notes 1412-Discussed the case with Dr. Mtz. We'll discharge the patient home on oral steroids, continue his Nebulized Treatments at home, with using his C Pap as needed. He is maintaining a saturation 90-94 percent on his baseline 4 L. Impression Impression: Primary Impression: COPD exacerbation Disposition: HOME, SELF-CARE Condition: Stable Departure-Patient Inst. Decision time for Depature: 14:15 Referrals: MENDOZA MTZ MD (PCP/Family) Primary Care Physician Patient Instructions: COPD Including Emphysema (DC) Add. Discharge Instructions: 1. Take steroids as directed starting today 2. Use your breathing machine every 4 hours with you feel like he needed are not for the rest of today 3. Call Dr. Mtz or Dr. Herrera to make an appointment to be seen later this week 4. Please return to the emergency room for any worsening. Scripts Azithromycin (Azithromycin) 250 Mg Tablet 250 MG PO UD, #6 TAB TAKE 2 TABLETS ON DAY ONE THEN TAKE 1 TABLET DAILY FOR FOUR MORE DAYS Prov: MICHELET MARIN APRN 03/31/17 Prednisone (Prednisone) 20 Mg Tab 40 MG PO DAILY, #6 TAB Prov: MICHELET MARIN APRN 03/31/17 Copy Copies To 1: MENDOZA MTZ MD, PETER J SENIOR COMPENSATION ANALYST Mar 31, 2017 12:46
[2017-03-31 13:07] LABS: BASOPHILS % (AUTO) 0 % (0-10); EOSINOPHILS # (AUTO) 0.1 10^3/uL (0.0-0.3); EOSINOPHILS % (AUTO) 1 % (0-10); LYMPHOCYTES # (AUTO) 0.6 X 10^3 (1.0-4.0); LYMPHOCYTES % (AUTO) 5 % (12-44); MEAN CORPUSCULAR HEMOGLOBIN 29 PG (25-34); MEAN CORPUSCULAR HGB CONC 29 G/DL (32-36); MEAN CORPUSCULAR VOLUME 100 FL (80-99); MEAN PLATELET VOLUME 10.4 FL (7.4-10.4); MONOCYTES # (AUTO) 0.9 X 10^3 (0.0-1.0); MONOCYTES % (AUTO) 7 % (0-12); NEUTROPHILS % (AUTO) 87 % (42-75); PLATELET COUNT 203 10^3/uL (130-400); RED BLOOD COUNT 4.09 10^6/uL (4.35-5.85); RED CELL DISTRIBUTION WIDTH 14.7 % (10.0-14.5); WHITE BLOOD COUNT 11.6 10^3/uL (4.3-11.0)
[2017-03-31 13:14] LABS: ABG BASE EXCESS 15.3 MMOL/L (-2.5-2.5); ABG OXYGEN SATURATION 100 % (94-100); ABG PH 7.37 (7.37-7.43); ABG PO2 134 MMHG (79-93); ABG TCO2 43.7 MMOL/L (21.0-31.0)
[2017-03-31 13:16] LABS: ABG HCO3 41 MMOL/L (23-27); ABG PCO2 74 MMHG (35-45); ALLENS TEST YES-POS; PATIENT TEMP 98.6
--- NOTE | 2017-03-31 13:22 | Diagnostic Imaging Report ---
Portable upright radiograph of the chest. INDICATION: Shortness of breath. COMPARISON: 08/02/2016. FINDINGS: There is prominence of the interstitial markings which may relate to vascular congestion on top of chronic component as seen on 08/02/2016. The heart size is near upper limits of normal. No effusion or pneumothorax. The mediastinum and kayla appear unremarkable. IMPRESSION: Prominent interstitial markings which may relate to vascular congestion on top of chronic interstitial thickening are seen. Dictated by: Dictated on workstation # [id number]
[2017-03-31 13:24] LABS: BAND NEUTROPHILS 0 %; BASOPHILS % (MANUAL) 0 %; EOSINOPHILS % (MANUAL) 0 %; LYMPHOCYTES % (MANUAL) 5 %; NEUTROPHILS % (MANUAL) 85 %
[2017-03-31 13:25] LABS: ALANINE AMINOTRANSFERASE 18 U/L (0-55); ALBUMIN 3.9 GM/DL (3.2-4.5); ANION GAP 9 MMOL/L (5-14); ASPARTATE AMINO TRANSFERASE 18 U/L (5-34); BILIRUBIN,TOTAL 0.5 MG/DL (0.1-1.0); BLOOD UREA NITROGEN 15 MG/DL (7-18); BUN/CREATININE RATIO 21; CARBON DIOXIDE 38 MMOL/L (21-32); CHLORIDE 97 MMOL/L (98-107); CREATININE SERUM 0.71 MG/DL (0.60-1.30); GFR ESTIMATED > 60; GLUCOSE 105 MG/DL (70-105); POTASSIUM 4.3 MMOL/L (3.6-5.0); SODIUM 144 MMOL/L (135-145); TOTAL PROTEIN 6.8 GM/DL (6.4-8.2)
[2017-03-31 13:30] LABS: TROPONIN I < 0.30 NG/ML (<0.30)
[2017-03-31 13:56] VITALS: BP 128/74
[2017-03-31] MEDS ORDERED: AZIT250T12 PO (14:17)
[2017-03-31] MEDS ORDERED: PRD20T PO (14:17)
[2017-03-31 14:57] VITALS: BP 128/74
[2017-04-06] MEDS ORDERED: PRD10T PO (17:57)
[2017-04-06] MEDS ORDERED: ALBU2.5V4 IH (17:57)
[2017-04-06] MEDS ORDERED: BESI5DRO OS (17:57)
[2017-04-06] MEDS ORDERED: CHOL400T PO (17:57)
[2017-04-06] MEDS ORDERED: CETI10TA17 PO (17:57)
[2017-04-06] MEDS ORDERED: VITA400C60 PO (17:57)
[2017-04-06] MEDS ORDERED: LOTE5DRO3 OU (17:57)
[2017-04-06] MEDS ORDERED: NITR0.4T SL (17:57)
[2017-04-06] MEDS ORDERED: ASPI-983 PO (17:57)
[2017-04-06] MEDS ORDERED: MULT1TAB69 PO (17:57)
== END 2017-03-31 14:57 | disposition home or self-care (01) ==
LOC: EDUNIT# 12:33 → ER 12:35
DX: J44.1 Chronic obstructive pulmonary disease with (acute) exacerbation (principal); I25.2 Old myocardial infarction; Z85.46 Personal history of malignant neoplasm of prostate; Z90.89 Acquired absence of other organs; Z87.891 Personal history of nicotine dependence; Z79.82 Long term (current) use of aspirin; Z99.81 Dependence on supplemental oxygen
CPT/HCPCS: 36415; 71010; 80053; 82805; 83880; 84484; 85007; 85027; 93005; 94640; 96374